=== PATIENT | female | born 1940 | race Caucasian/White ===

== ENCOUNTER 2019-03-17 16:12 | Emergency (ER) | payer OTHER ==
[~2019-03-17] VITALS: Ht 165.1 cm; Wt 68.0 kg
[2019-03-17] MEDS ORDERED: SODIUM CHLORIDE 0.9% 500 ML IVB ONE (16:22)
[2019-03-17] MEDS ORDERED: ACETAMINOPHEN 325 MG TAB PO ONE (17:00)
[2019-03-17 17:23] LABS: Urine WBC None Seen /hpf (0 - 5)
[2019-03-17 17:51] LABS: Albumin 2.4 g/dL (3.4-5.0); Anion Gap 9 (5-15); Basophils # (auto) 0.1 uL; Basophils % (auto) 0.9 % (0.0-2.0); Blood Urea Nitrogen 26 mg/dL (7-18); Calcium 8.7 mg/dL (8.5-10.1); Carbon Dioxide 22 mmol/L (21-32); Chloride 105 mmol/L (98-107); Eosinophils # (auto) 0.4 uL; Eosinophils % (auto) 2.8 % (0.0-7.0); Glucose 140 mg/dL (74-106); Hematocrit 33.5 % (36.0-46.0); Hemoglobin 10.9 g/dL (12.2-16.2); Lymphocytes # (auto) 1.4 uL; Lymphocytes % (auto) 10.9 % (10.0-50.0); Magnesium 1.7 mg/dL (1.6-2.6); Mean Corpuscular Hemoglobin 27.9 pg (28.0-32.0); Mean Corpuscular Hgb Conc. 32.5 g/dL (32.0-36.0); Mean Corpuscular Volume 85.9 fL (80.0-100.0); Monocytes # (auto) 1.4 uL; Monocytes % (auto) 11.3 % (0.0-12.0); Neutrophils # (auto) 9.3 uL; Neutrophils % (auto) 74.1 % (37.0-80.0); Platelet Count (auto) 273 10^3/uL (140-450); Potassium 4.2 mmol/L (3.5-5.1); Red Cell Distribution Width 15.1 % (11.8-14.3); Sodium 136 mmol/L (136-145); White Blood Cell 12.6 10^3/uL (4.4-10.8)
[2019-03-17 17:54] LABS: Alanine Aminotransferase 44 U/L (13-56); Alkaline Phosphatase 113 U/L (45-117); Aspartate Aminotransferase 41 U/L (15-37); BUN/Creatinine Ratio 27.1; Bilirubin, Total 0.4 mg/dL (0.2-1.0); GFR African American 72 mL/min; GFR Non-African American 60 mL/min; Total Protein 7.4 g/dL (6.4-8.2)
[2019-03-17 17:56] LABS: Lactic Acid w/Reflex 2.4 mmol/L (0.4-2.0)
[2019-03-17 18:23] LABS: INR > 8.0 (0.9-1.15)
[2019-03-17 18:30] LABS: Urine Bacteria NONE SEEN /hpf (None Seen); Urine Blood Negative /uL (Negative); Urine Specific Gravity 1.013 (1.001-1.035)
[2019-03-17] MEDS ORDERED: PHYTONADIONE (VIT K)10 MG/ML 1ML VIAL SUBCUT ONE (19:00)
[2019-03-17 19:54] LABS: Alcohol, Urine < 3.0 mg/dL (0-5); Amphetamine Screen, Urine NEGATIVE (NEGATIVE); Barbiturate Scree,Urine NEGATIVE (NEGATIVE); Benzodiazephine Screen, Urine NEGATIVE (NEGATIVE); Cannabinoid Screen, Urine NEGATIVE (NEGATIVE); Cocaine Screen, Urine NEGATIVE (NEGATIVE); Opiate Scree,Urine NEGATIVE (NEGATIVE); Phencyclidine Screen, Urine NEGATIVE (NEGATIVE)
[2019-03-18 02:03] VITALS: BP 123/84
== END 2019-03-18 02:24 | disposition short-term general hospital (02) ==
LOC: EDBD 16:12 → ER 16:12
DX: I50.33 Acute on chronic diastolic (congestive) heart failure (principal); J44.9 Chronic obstructive pulmonary disease, unspecified; E11.9 Type 2 diabetes mellitus without complications; R51 Headache; Z88.2 Allergy status to sulfonamides
CPT/HCPCS: 36415; 51702; 70450; 71045; 80053; 80307; 81001; 83605; 83735; 83880; 84484; 85025; 85610; 85730; 87040; 93005; 94761; 96372; 99285; J3430; J7040

== ENCOUNTER 2024-12-26 09:45 | Inpatient (IN) | payer OTHER ==
[~2024-12-26] VITALS: Ht 165.1 cm; Wt 71.0 kg
[~2024-12-26 09:45] MED LIST: ALLO100T PO; ATOR40TA52 PO; LOS25T PO; SERT25TA28 PO
--- NOTE | 2024-12-26 09:54 | ED.PDOC ---
History of Present Illness HPI Comments 84-year-old female brought by paramedics because of generalized weakness which started yesterday as per family. Patient also has not been able to have a bowel movement since this morning. Patient on not answering questions appropriately. Possible dementia. History of diabetes pacemaker hyper cholesterol. Blood pressure on arrival was 146/83 with a heart rate of 89 saturation 98% on room air. 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 Hx Family History Family History: Unknown Social History Smoker: Non-Smoker Alcohol: Denies ETOH Use Drugs: Denies Drug Use Lives In: Home Constitutional: reports: weakness; denies: chills, diaphoresis, fatigue, fever, malaise, sweats, others EENTM: denies: blurred vision, double vision, ear bleeding, ear discharge, ear drainage, ear pain, ear ringing, eye pain, eye redness, hearing loss, mouth pain, mouth swelling, nasal discharge, nose bleeding, nose congestion, nose pain, photophobia, tearing, throat pain, throat swelling, voice changes, others Respiratory: denies: cough, hemoptysis, orthopnea, SOB at rest, shortness of breath, SOB with excertion, stridor, wheezing, others Cardiovascular: denies: chest pain, dizzy spells, diaphoresis, Dyspnea on exertion, edema, irregular heart beat, left arm pain, lightheadedness, palpitations, PND, syncope, others Gastrointestinal: reports: abdominal pain; denies: abdomen distended, blood streaked bowels, constipated, diarrhea, dysphagia, difficulty swallowing, hematemesis, melena, nausea, poor appetite, poor fluid intake, rectal bleeding, rectal pain, vomiting, others Genitourinary: denies: abnormal vagina bleeding, burning, dyspareunia, dysuria, flank pain, frequency, hematuria, incontinence, pain, , vagina discharge, urgency, others Neurological: denies: dizziness, fainting, headache, left sided numbness, left sided weakness, numbness, paresthesia, pre-existing deficit, right sided numbness, right sided weakness, seizure, speech problems, tingling, tremors, weakness, others Musculoskeletal: denies: back pain, gout, joint pain, joint swelling, muscle pain, muscle stiffness, neck pain, others Integumetry: denies: bruises, change in color, change in hair/nails, dryness, laceration, lesions, lumps, rash, wounds, others Allergic/Immunocompromised: denies: Difficulty Healing, Frequent Infections, Hives, Itching, others Hematologic/Lymphatic: denies: anemia, blood clots, easy bleeding, easy bruising, swollen glands, others Endocrine: denies: excessive hunger, excessive sweating, excessive thirst, excessive urination, flushing, intolerance to cold, intolerance to heat, unexplained weight gain, unexplained weight loss, others Psychiatric: denies: anxiety, bipolar disorder, depression, hopeless, panic disorder, schizophrenia, sleepless, suicidal, others Unable to Obtain due to: Altered Mental Status Physical Exam General Appearance: Moderate Distress HEENT: Normal ENT Inspection, Pharynx Normal, TMs Normal Neck: Full Range of Motion, Non-Tender, Normal, Normal Inspection Respiratory: Chest Non-Tender, Lungs Clear, No Accessory Muscle Use, No Respiratory Distress, Normal Breath Sounds Cardiovascular: No Edema, No JVD, No Murmur, No Gallop, Normal Peripheral Pulses, Regular Rate/Rhythm Breast Exam: Deferred Gastrointestinal: No Organomegaly, Non Tender, No Pulsatile Mass, Normal Bowel Sounds, Soft Genitalia: Deferred Pelvic: Deferred Rectal: Deferred Extremities: No calf tenderness, No pedal edema Musculoskeletal : Apperance: Normal Neurologic: Disoriented, No Motor Deficits, No Sensory Deficits Cerebellar Function: NOT DONE Reflexes: NOT DONE Skin: Pallor Peripheral Pulses: 3+ Radial (R), 3+ Radial (L) Lymphatic: No Adenopathy Was a procedure done? Was a procedure done?: No Differential Dx Considerations may include: TIA Electrolyte imbalance X-Ray, Labs, Meds, VS Vital Signs Date Time Temp Pulse Resp B/P (MAP) Pulse Ox O2 Delivery O2 Flow Rate FiO2 12/26/24 13:26 97.8 70 18 114/55 (74) 99 97.8 12/26/24 10:30 Room Air* 0 21 12/26/24 10:00 97.5 89 16 146/83 (104) 98 97.5 12/26/24 09:58 70 Lab Test 12/26/24 15:27 12/26/24 13:22 12/26/24 10:12 Range/Units Lactic Acid Level 3.3 *H 3.1 *H 0.4-2.0 mmol/L White Blood Count 22.9 H 4.4-10.8 10^3/uL Red Blood Count 4.69 4.0-5.20 10^6/uL Hemoglobin 13.1 12.2-16.2 g/dL Hematocrit 41.2 36.0-46.0 % Mean Corpuscular Volume 87.8 80.0-100.0 fL Mean Corpuscular Hemoglobin 27.9 L 28.0-32.0 pg Mean Corpuscular Hemoglobin Concent 31.8 L 32.0-36.0 g/dL Red Cell Distribution Width 16.7 H 11.8-14.3 % Platelet Count 271 140-450 10^3/uL Mean Platelet Volume 11.0 H 6.9-10.8 fL Neutrophils (%) (Auto) 82.3 H 37.0-80.0 % Lymphocytes (%) (Auto) 9.9 L 10.0-50.0 % Monocytes (%) (Auto) 4.7 0.0-12.0 % Eosinophils (%) (Auto) 2.1 0.0-7.0 % Basophils (%) (Auto) 1.0 0.0-2.0 % Neutrophils # (Auto) 18.9 H 1.6-8.6 10 ^3/uL Lymphocytes # (Auto) 2.3 0.4-5.4 10 ^3/uL Monocytes # (Auto) 1.1 0-1.3 10 ^3/uL Eosinophils # (Auto) 0.5 0-0.8 10 ^3/uL Basophils # (Auto) 0.2 0-0.2 10 ^3/uL Nucleated Red Blood Cells 0.0 % Sodium Level 137 136-145 mmol/L Potassium Level 4.6 3.5-5.1 mmol/L Chloride Level 107 98-107 mmol/L Carbon Dioxide Level 21 20-31 mmol/L Anion Gap 9 5-15 Blood Urea Nitrogen 19 9-23 mg/dL Creatinine 0.88 0.550-1.02 mg/dL Glomerular Filtration Rate Calc 65 >90 mL/min BUN/Creatinine Ratio 21.6 H 10.0-20.0 Serum Glucose 266 H 74-106 mg/dL Calcium Level 10.7 H 8.7-10.4 mg/dL Troponin I High Sensitivity 5 </=34 ng/L Current Medications Medications (Trade) Dose Ordered Sig/Satish Route Start Time Stop Time Status Last Admin Ceftriaxone Sodium 50 ml @ 100 mls/hr ONCE ONCE IV 12/26/24 13:00 12/26/24 13:29 DC 12/26/24 14:00 Ceftriaxone Sodium 50 ml @ 100 mls/hr ONCE ONCE IV 12/26/24 13:00 12/26/24 13:29 DC 12/26/24 14:00 Metronidazole 100 ml @ 100 mls/hr ONCE ONCE IV 12/26/24 13:00 12/26/24 13:59 DC 12/26/24 14:00 Sodium Chloride 1,700 ml @ 1,700 mls/hr ONCE ONCE IV 12/26/24 14:15 12/26/24 15:18 DC 12/26/24 14:15 Sodium Chloride 1,000 ml @ 1,000 mls/hr Q1H ONCE IV 12/26/24 14:15 12/26/24 15:18 DC 12/26/24 14:15 Patient disoriented. Unable to get a good history from the patient. Possible sepsis from urine. Blood sugar elevated. Establish intravenous access. Was given fluids. WBC elevated. Sepsis workup. Urine culture. Devlin catheter. Was given insulin. EKG reviewed does not show any acute changes. Cardiac marker within normal limits. Unstable for transfer. Continue to monitor. Frederic approved inpatient admission [id number]. Time of 1ST Reevaluation: 09:54 Reevaluation 1ST: Unchanged Patient Education/Counseling: Other (Not responding well) Family Education/Counseling: No Family Present Sepsis Sepsis Reasesment Focused Exam Orders: Laboratory Tests 12/26/24 13:22: Lactic Acid Level 3.1 12/26/24 15:27: Lactic Acid Level 3.3 Departure 1 Departure Time of Disposition: 12:49 Impression: Primary Impression: Sepsis due to urinary tract infection Additional Impressions: Metabolic encephalopathy Acute diverticulitis Disposition: ADMITTED INPATIENT Admit to: Med Surg Condition: Guarded Critical Care Note Critical Care Time?: No Stability Stability form required: No Heart Score Heart Score: Heart Score Response (Comments) Value History Slightly Suspicious 0 EKG Normal 0 Age >65 2 Risk Factors >3 or Hx ASHD 2 Troponin Normal limit 0 Total 4 VAHID BURROWS MD December 26, 2024 09:54
--- NOTE | 2024-12-26 10:03 | ECG ---
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
[2024-12-26 10:38] LABS: Basophils # (auto) 0.2 10 ^3/uL (0-0.2); Eosinophils # (auto) 0.5 10 ^3/uL (0-0.8); Eosinophils % (auto) 2.1 % (0.0-7.0); Hematocrit 41.2 % (36.0-46.0); Hemoglobin 13.1 g/dL (12.2-16.2); Lymphocytes # (auto) 2.3 10 ^3/uL (0.4-5.4); Lymphocytes % (auto) 9.9 % (10.0-50.0); Mean Corpuscular Hemoglobin 27.9 pg (28.0-32.0); Mean Corpuscular Hgb Conc. 31.8 g/dL (32.0-36.0); Mean Corpuscular Volume 87.8 fL (80.0-100.0); Monocytes # (auto) 1.1 10 ^3/uL (0-1.3); Monocytes % (auto) 4.7 % (0.0-12.0); Neutrophils # (auto) 18.9 10 ^3/uL (1.6-8.6); Neutrophils % (auto) 82.3 % (37.0-80.0); Platelet Count (auto) 271 10^3/uL (140-450); Red Blood Cells 4.69 10^6/uL (4.0-5.20); Red Cell Distribution Width 16.7 % (11.8-14.3); White Blood Cell 22.9 10^3/uL (4.4-10.8)
[2024-12-26 10:43] LABS: Chloride 107 mmol/L (98-107); Potassium 4.6 mmol/L (3.5-5.1); Sodium 137 mmol/L (136-145)
--- NOTE | 2024-12-26 10:43 | DVH ---
EXAM: XY CHEST PORTABLE Indication: sob Technique: Single frontal view of the chest was obtained Comparison: None FINDINGS: Lines and Tubes: Cardiac pacemaker projects over left chest wall. Lungs: No focal consolidation. Pleura: No effusion. No pneumothorax. Cardiomediastinal contours: Unremarkable. Atherosclerotic vascular calcifications of the thoracic ao rta are noted. Bones: No acute osseous abnormality. IMPRESSION: No acute cardiopulmonary disease.
[2024-12-26 10:44] LABS: Anion Gap 9 (5-15); Carbon Dioxide 21 mmol/L (20-31)
[2024-12-26 10:49] LABS: BUN/Creatinine Ratio 21.6 (10.0-20.0); Blood Urea Nitrogen 19 mg/dL (9-23)
[2024-12-26 10:50] LABS: Calcium 10.7 mg/dL (8.7-10.4); Glucose 266 mg/dL (74-106)
--- NOTE | 2024-12-26 13:27 | DVH ---
EXAM: CT HEAD WITHOUT CONTRAST INDICATION: altered EXAM DATE: 12/26/2024 12:56 PM COMPARISON: None TECHNIQUE: CT of the head without intravenous contrast. Radiation Dose Information: [place] [address] mGy. Dose-length product is 1756.89 mGy*cm FINDINGS: There is no evidence of acute intracranial hemorrhage, extra-axial collection, mass effect, midline s hift, herniation or hydrocephalus. There is global atrophy with periventricular ischemic white matter changes. The ventricles, sulci and cisterns are age appropriate. The borrego-white differentiation is i ntact. The visualized paranasal sinuses and mastoid air cells are clear. Small retention cysts in the right maxillary air cell. The surrounding soft tissues and osseous structures are unremarkable. Ther e are bilateral hyperostosis frontalis interna. IMPRESSION: 1. No evidence of acute intracranial hemorrhage, mass effect or hydrocephalus.
--- NOTE | 2024-12-26 13:35 | DVH ---
Exam: CT CT AB PEL WO CON-NO ORAL OR IV History: colitis Comparison Study: None Technique: Multidetector spiral CT of the abdomen was performed from lung bases to pubic symphysis. I maging was performed without IV contrast. Axial, coronal and sagittal multiplanar reformats were obta ined from the axial data set by the technologist. Radiation Dose : 1. Abdomen/Pelvis: CTDIvol 12 mGy, DLP 629 mGy*cm. Findings: Evaluation of solid organs is limited due to lack of intravenous contrast use. Lung Bases: 1.6 cm mass in the left lower lobe. Cardiomegaly. Liver: The liver is normal in size. No focal lesions. Gallbladder and Biliary Tree: Unremarkable Spleen: Unremarkable Pancreas: The pancreas is grossly normal in appearance. Adrenal Glands: Unremarkable Kidneys: Kidneys are grossly normal without calculi or hydronephrosis. Bladder: Grossly unremarkable for degree of distention. Bowel: The stomach is grossly normal in appearance. Moderate colonic stool. Diverticulosis. Moderate inflammatory changes associated with the distal sigmoid colon. The appendix is not visualized; howeve r, no secondary findings of acute appendicitis identified. Ascites: Absent Lymphadenopathy: No mesenteric, retroperitoneal or periportal lymphadenopathy. Abdominal Wall and Mesentery: Unremarkable. Vasculature: The visualized abdominal aorta is normal in size and caliber. Evaluation of abdominal a nd pelvic vessels is limited due to lack of intravenous contrast. Pelvic Organs: Unremarkable Musculoskeletal: No aggressive focal bony lesions, acute fractures or dislocation. Multilevel degener ative changes of the spine. IMPRESSION: Findings are suspicious for acute diverticulitis involving the distal sigmoid colon. No abscess or pe rforation at this time.
[2024-12-26] MEDS: metroNIDAZOLE 500MG/100ML 100 ML IV ONE (14:00)
[2024-12-26] MEDS: cefTRIAXone 1GM/50ML D5W 50 ML IV ONE ×2 (14:00)
[2024-12-26 14:05] LABS: Lactic Acid w/Reflex 3.1 mmol/L (0.4-2.0)
[2024-12-26] MEDS: SODIUM CHLORIDE 0.9% 1,700 ML IV ONE (14:15)
[2024-12-26] MEDS: SODIUM CHLORIDE 0.9% 1,000 ML IV ONE (14:15)
[2024-12-26] MEDS: SODIUM CHLORIDE 0.9% 1,000 ML IV SCH (16:30)
[2024-12-26] MEDS ORDERED: NITROGLYCERIN 0.4 MG SL TAB SL PRN (16:30)
[2024-12-26] MEDS ORDERED: MORPHINE SULFATE INJ 2 MG/ml SYRG IV PRN ×2 (16:30)
--- NOTE | 2024-12-26 17:21 | DVHHPRES ---
History of Present Illness Resident Creating Document: YAEL MCCULLOUGH RESIDENT Reason for Visit: sepsis likely due to diverticulitis History of Present Illness 84 year old female patient with past medical history of heart failure( pending echo), COPD, type 2 diabetes, pacemaker who presented to the ER with the chief complaint of generalized weakness and abdominal pain described as moderate ( patient poor historian). Patient was examied at bedside and reports feeling better with no acute complaints, laboratory findings confirmed severe sepsis which source was likely due to an acute diverticulitis as its showed in CT abdomen. Patient was started on metronidazole and ceftriaxone , blood cultures were ordered. echocardiogram pending. Past surgical history: Appendectomy, Cholecystectomy, Hysterectomy, Pacemaker, Tonsillectomy Allergies: sulfa antibiotics Past social history: denies Patient poor historian, interview was limited. Smoke: No ALCOHOL: none Drugs: None Review of Systems Constitutional: Yes: Weakness, Malaise Eyes: No: Pain, Vision change, Conjunctivae inflammation, Eyelid inflammation, Other, Redness ENT: No: Ear pain, Ear discharge, Nose pain, Nose discharge, Nose congestion, Mouth pain, Mouth swelling, Throat pain, Throat swelling, Other Respiratory: No: Cough, Dry, Shortness of breath, SOB with excertion, Wheezing, Hemoptysis, Pleuritic Pain, Sputum, Wheezing, Other Cardiovascular: No: Chest Pain, Palpitations, Orthopnea, Paroxysmal Noc. Dyspnea, Edema, Lt Headedness, Other Gastrointestinal: No: Nausea, Vomiting, Abdominal Pain, Diarrhea, Constipation, Melena, Hematochezia, Other Genitourinary: No Dysuria, No Frequency, No Incontinence, No Hematuria, No Retention, No Other Musculoskeletal: No: other, neck pain, shoulder pain, arm pain, back pain, hand pain, leg pain, foot pain Skin: No: Rash, Lesions, Jaundice, Bruising, Other Neurological: Weakness Allergies: Coded Allergies: Sulfa Antibiotics (Verified Allergy, Unknown, 03/17/19) Medications Current Medications Medications Dose Ordered Sig/Satish Route Start Time Stop Time Status Last Admin Dose Admin Sodium Chloride 1,000 ml @ 120 mls/hr Q8H20M IV 12/26/24 16:30 UNV Morphine Sulfate 2 mg Q4HPRN PRN IV 12/26/24 16:30 UNV Nitroglycerin 0.4 mg Q5MINP PRN SL 12/26/24 16:30 UNV Morphine Sulfate 2 mg Q30M PRN IV 12/26/24 16:30 UNV Exam Vital Signs Vital Signs Date Time Temp Pulse Resp B/P (MAP) Pulse Ox O2 Delivery O2 Flow Rate FiO2 12/26/24 13:26 97.8 70 18 114/55 (74) 99 97.8 12/26/24 10:30 Room Air* 0 21 General Appearance: Alert, Oriented X3, Cooperative, mild distress HEENT: PERRLA, EOMI Respiratory: Clear to auscultation, Normal air movement Cardiovascular: Regular rate, Normal S1, Normal S2 Abdominal: Normal bowel sounds, Soft, No tenderness Extremities: No clubbing, No cyanosis, No edema Skin: No rashes, No significant lesion Neuro: Normal speech, Normal tone, Sensation intact, Cranial nerves 3-12 NL Labs/Xrays Labs Test 12/26/24 15:27 12/26/24 10:12 Range/Units Lactic Acid Level 3.3 *H 0.4-2.0 mmol/L White Blood Count 22.9 H 4.4-10.8 10^3/uL Red Blood Count 4.69 4.0-5.20 10^6/uL Hemoglobin 13.1 12.2-16.2 g/dL Hematocrit 41.2 36.0-46.0 % Mean Corpuscular Volume 87.8 80.0-100.0 fL Mean Corpuscular Hemoglobin 27.9 L 28.0-32.0 pg Mean Corpuscular Hemoglobin Concent 31.8 L 32.0-36.0 g/dL Red Cell Distribution Width 16.7 H 11.8-14.3 % Platelet Count 271 140-450 10^3/uL Mean Platelet Volume 11.0 H 6.9-10.8 fL Neutrophils (%) (Auto) 82.3 H 37.0-80.0 % Lymphocytes (%) (Auto) 9.9 L 10.0-50.0 % Monocytes (%) (Auto) 4.7 0.0-12.0 % Eosinophils (%) (Auto) 2.1 0.0-7.0 % Basophils (%) (Auto) 1.0 0.0-2.0 % Neutrophils # (Auto) 18.9 H 1.6-8.6 10 ^3/uL Lymphocytes # (Auto) 2.3 0.4-5.4 10 ^3/uL Monocytes # (Auto) 1.1 0-1.3 10 ^3/uL Eosinophils # (Auto) 0.5 0-0.8 10 ^3/uL Basophils # (Auto) 0.2 0-0.2 10 ^3/uL Nucleated Red Blood Cells 0.0 % Sodium Level 137 136-145 mmol/L Potassium Level 4.6 3.5-5.1 mmol/L Chloride Level 107 98-107 mmol/L Carbon Dioxide Level 21 20-31 mmol/L Anion Gap 9 5-15 Blood Urea Nitrogen 19 9-23 mg/dL Creatinine 0.88 0.550-1.02 mg/dL Glomerular Filtration Rate Calc 65 >90 mL/min BUN/Creatinine Ratio 21.6 H 10.0-20.0 Serum Glucose 266 H 74-106 mg/dL Calcium Level 10.7 H 8.7-10.4 mg/dL Troponin I High Sensitivity 5 </=34 ng/L Assessment/Plan Assessment/Plan Assessment: Severe sepsis likely due to acute diverticulitis Hyperglycemia due to uncontrolled type 2 diabetes Systolic/diastolic heart failure Hypercalcemia Left lower lung mass (1.6 cm) Plan: admit to telemetry Broad spectrum antibiotics, IV metronidazole and ceftriaxone IV fluids echocardiogram blood culture urine culture vitamin D PTH insulin sliding scale protocol Ralston approved inpatient admission [id number]. case discussed with code status: full code Plan discussed with: Patient My Orders Orders - YAEL MCCULLOUGH RESIDENT Procedure Category Date Status Time Admit ADMIT 12/26/24 Transmitted 16:22 Allergies JUICE 12/26/24 In Process 16:22 Code Status CODE 12/26/24 Transmitted 16:22 Sodium Chloride 0.9% PHA 12/26/24 Logged 16:30 Complete Blood Count LAB 12/27/24 Verified 04:00 Comprehensive LAB 12/27/24 Verified Metabolic Panel 04:00 Npo (Nothing By DIET 12/26/24 Transmitted Mouth) Diet Dinner Echo 2d Mode Cardiac US 12/26/24 Logged DOP 16:22 Condition: Unstable JUICE 12/26/24 In Process 16:22 Morphine Sulfate PHA 12/26/24 Logged Injection 16:30 Nitroglycerin PHA 12/26/24 Logged Sublingual (Ntrostat 16:30 Morphine Sulfate PHA 5/27/25 Logged Injection 16:30 Oxygen By Nasal RT 12/26/24 Transmitted Cannula 16:22 Stat Ekg For Chest [facility] 12/26/24 In Process Pain 16:22 Notify Md Of Changes [facility] 12/26/24 In Process From Base 16:22 Pantry Goods Worker For [facility] 12/26/24 In Process 24 Hours 16:22 Emergency Dysrhythmia [facility] 12/26/24 In Process Protocol 16:22 Rhythm Strips Once [facility] 12/26/24 In Process Every Shift 16:22 Date of Service: December 26, 2024 Billing Provider: RIC WHARTON MD Common Visit Codes: [id number] INP/OBS CARE (HIGH) Secondary Visit Codes: [id number] CARE PLAN 30 MINUTES YALE MCCULLOUGH RESIDENT December 26, 2024 17:21 RIC WHARTON MD December 27, 2024 07:20
[2024-12-26] MEDS ORDERED: MORPHINE SULFATE 4 MG/ML SYR/VIAL IV PRN (17:45)
[2024-12-26 18:47] LABS: INR 1.03 (0.9-1.15); Prothrombin Time 10.9 sec (9.3-11.8)
[2024-12-26 20:51] LABS: COVID19 ANTIGEN SOFIA FIA NEGATIVE (NEGATIVE); Rapid Influenza A Negative (Negative); Rapid Influenza B Negative (Negative)
[2024-12-26] MEDS: metroNIDAZOLE 500MG/100ML 100 ML IV SCH (23:15)
[2024-12-26 23:46] VITALS: PULSE 78; O2SAT 96
[2024-12-27] VITALS (9 sets, daily range): BP systolic 130–164; BP diastolic 59–95; PULSE 69–81; RESP 17–20; TEMP 97.4–98.2; O2SAT 91–97
[2024-12-27 06:44] LABS: Hematocrit 43.7 % (36.0-46.0); Hemoglobin 13.6 g/dL (12.2-16.2); Mean Corpuscular Hemoglobin 27.9 pg (28.0-32.0); Mean Corpuscular Hgb Conc. 31.1 g/dL (32.0-36.0); Mean Corpuscular Volume 89.8 fL (80.0-100.0); Platelet Count (auto) 166 10^3/uL (140-450); Red Blood Cells 4.86 10^6/uL (4.0-5.20); Red Cell Distribution Width 17.4 % (11.8-14.3); White Blood Cell 29.4 10^3/uL (4.4-10.8)
[2024-12-27 07:04] LABS: Alanine Aminotransferase 18 U/L (7-40); Albumin 4.1 g/dL (3.2-4.8); Alkaline Phosphatase 86 U/L (46-116); Anion Gap 13 (5-15); Aspartate Aminotransferase 20 U/L (13-40); BUN/Creatinine Ratio 21.4 (10.0-20.0); Bilirubin, Total 0.6 mg/dL (0.2-1.0); Blood Urea Nitrogen 15 mg/dL (9-23); Calcium 9.8 mg/dL (8.7-10.4); Potassium 4.4 mmol/L (3.5-5.1); Sodium 142 mmol/L (136-145); Total Protein 7.5 g/dL (5.7-8.2)
[2024-12-27 07:09] LABS: Carbon Dioxide 18 mmol/L (20-31); Chloride 111 mmol/L (98-107); Glucose 172 mg/dL (74-106)
[2024-12-27 07:24] LABS: Band Neutrophils % (manual) 0; Basophils % (manual) 0 (0.0-2.0); Blast Cells 0; Eosinophils % (manual) 0 (0-7); Metamyelocytes % 0; Myelocytes % 0; Promyelocytes % 0; Reactive Lymphocytes 0
[2024-12-27 08:23] LABS: Lymphocytes % (manual) 5 (10.0-50.0); Monocytes % (manual) 5 (0-12); Platelet Estimate Adequate
[2024-12-27] MEDS: cefTRIAXone 1GM/50ML D5W 50 ML IV SCH (08:59)
[2024-12-27] MEDS ORDERED: DEXTROSE (50%) 50ML SYRG IV PRN (10:15)
--- NOTE | 2024-12-27 10:23 | DVHPN2 ---
Progress Note Date Seen: December 27, 2024 Medical Necessity Reason Pt with a Central, PICC or Fol: No Subjective Patient reports: No new complaints Review of Systems: HEENT:Normal, CVS:Normal, RESPIRATORY:Normal, GI:Normal, :Normal, MSK:Normal, NEURO:Normal Objective vital signs Vital Sign Date Time Temp Pulse Resp B/P (MAP) Pulse Ox O2 Delivery O2 Flow Rate FiO2 12/27/24 09:00 97.4 74 17 130/80 (97) 93 97.4 12/27/24 01:32 Room Air* 0 21 Total Intake and Output 12/26/24 12/26/24 12/27/24 15:00 23:00 07:00 Intake Total 0 ml Balance 0 ml medications Current Medications Medications Dose Ordered Sig/Satsih Route Start Time Stop Time Status Last Admin Dose Admin Sodium Chloride 1,000 ml @ 120 mls/hr Q8H20M IV 12/26/24 16:30 12/26/24 23:15 120 MLS/HR Nitroglycerin 0.4 mg Q5MINP PRN SL 12/26/24 16:30 Morphine Sulfate 2 mg Q30M PRN IV 12/26/24 16:30 Morphine Sulfate 2 mg Q4HPRN PRN IV 12/26/24 17:45 Metronidazole 100 ml @ 100 mls/hr Q8HR IV 12/26/24 22:00 12/27/24 05:08 100 MLS/HR Ceftriaxone Sodium 50 ml @ 100 mls/hr DAILY@09 IV 12/27/24 09:00 12/27/24 08:59 100 MLS/HR Examination: GENERAL:Normal, HEENT:Normal, NECK:Normal, LUNGS:Normal, CVS:Normal, ABDOMEN:Normal, ABDOMEN:Abnormal (distension), MSK:Normal, SKIN:Normal, NEURO:Normal, :Normal laboratory and microbiology Laboratory Tests 12/27/24 05:28 Test 12/27/24 05:28 Range/Units Serum Glucose 172 H 74-106 mg/dL Problem List/Assessment/Plan Problem List/Assessment/Plan #1 acute diverticulitis with sepsis: ivf, iv zosyn, gi eval #2 dm: ssi #3 obesity #4 pacer #5 chronic systolic/diastolic heart failure: echo advance care planning- full code- time spent 19 mins unstable for transfer Plan discussed with: Patient Date of Service: December 27, 2024 Billing Provider: MICHAEL ISABEL MD Common Visit Codes: [id number] INP/OBS CARE(HIGH) Secondary Visit Codes: [id number] CARE PLAN 30 MINUTES MICHAEL ISABEL MD December 27, 2024 10:23
[2024-12-27] MEDS: InsuLIN REG 1unit/0.01ml Soln (100units/ml) SC SCH (12:00)
[2024-12-27] MEDS: PIPERACILLIN-TAZOB 3.375GM 100 ML IV ONE (12:10)
[2024-12-27] MEDS: SODIUM CHLORIDE 0.9% 1,000 ML IV SCH (12:10)
[2024-12-27] MEDS: ACCU-CHEK COMFORT CURVE STRIP VI SCH (12:13)
--- NOTE | 2024-12-27 13:42 | DVHINCON2 ---
GI Consult Consult Note GI consult note Date of Consultation: 12/27/2024 Chief Complaint: Acute diverticulitis Referring Physician: Dr. Drake H&P: 84-year-old female with past medical history of heart failure, COPD, diabetes and pacemaker presented to ER with chief complaint of generalized weakness and abdominal pain. Patient complains of lower abdominal pain in the last 3-4 days. No nausea or vomiting. Last BM this morning. No melena or red blood in stool. Denies fevers and chills. Unsure about last colonoscopy Past Medical History: As above Past Surgical History: Appendectomy, Cholecystectomy, Hysterectomy, Pacemaker, Tonsillectomy Social History: NO smoking, drinking ETOH and use of illegal drugs. Family History: Noncontributory Review of Systems: Constitutional: no fever, chill, weight loss HEENT: no eye pain, no hearing loss, no oral lesion, no scleral icterus Heart: no chest pain, no chest pressure Lung: no cough, no dyspnea with exertion Abdomen: see HPI Physical exam: General: NAD, AAOX3 Chest: lung deluca clear to auscultation Heart: RRR, no murmur Abdomen:+ tenderness to palpation, +BS Labs: Labs Test 12/27/24 12:07 12/27/24 05:28 12/26/24 18:22 12/26/24 18:00 Range/Units POC Glucose 191 H 70-106 mg/dl White Blood Count 29.4 H 4.4-10.8 10^3/uL Red Blood Count 4.86 4.0-5.20 10^6/uL Hemoglobin 13.6 12.2-16.2 g/dL Hematocrit 43.7 36.0-46.0 % Mean Corpuscular Volume 89.8 80.0-100.0 fL Mean Corpuscular Hemoglobin 27.9 L 28.0-32.0 pg Mean Corpuscular Hemoglobin Concent 31.1 L 32.0-36.0 g/dL Red Cell Distribution Width 17.4 H 11.8-14.3 % Platelet Count 166 140-450 10^3/uL Mean Platelet Volume 11.5 H 6.9-10.8 fL Neutrophils (%) (Auto) 37.0-80.0 % Lymphocytes (%) (Auto) 10.0-50.0 % Monocytes (%) (Auto) 0.0-12.0 % Basophils (%) (Auto) 0.0-2.0 % Neutrophils # (Auto) 1.6-8.6 10 ^3/uL Lymphocytes # (Auto) 0.4-5.4 10 ^3/uL Monocytes # (Auto) 0-1.3 10 ^3/uL Differential Total Cells Counted 100.0 100 Neutrophils % (Manual) 90 H 37.0-80.0 Band Neutrophils % (Manual) 0 Lymphocytes % (Manual) 5 L 10.0-50.0 Monocytes % (Manual) 5 0-12 Eosinophils % (Manual) 0 0-7 Basophils % (Manual) 0 0.0-2.0 Metamyelocytes % (manual) 0 Myelocytes % (Manual) 0 Promyelocytes % (Manual) 0 Blast Cells % (Manual) 0 Reactive Lymphocytes 0 Platelet Estimate Adequate Sodium Level 142 # 136-145 mmol/L Potassium Level 4.4 3.5-5.1 mmol/L Chloride Level 111 H 98-107 mmol/L Carbon Dioxide Level 18 L 20-31 mmol/L Anion Gap 13 5-15 Blood Urea Nitrogen 15 9-23 mg/dL Creatinine 0.70 0.550-1.02 mg/dL Glomerular Filtration Rate Calc 86 >90 mL/min BUN/Creatinine Ratio 21.4 H 10.0-20.0 Serum Glucose 172 H 74-106 mg/dL Calcium Level 9.8 8.7-10.4 mg/dL Total Bilirubin 0.6 0.2-1.0 mg/dL Aspartate Amino Transferase (AST) 20 13-40 U/L Alanine Aminotransferase (ALT) 18 7-40 U/L Alkaline Phosphatase 86 46-116 U/L Total Protein 7.5 5.7-8.2 g/dL Albumin 4.1 3.2-4.8 g/dL Prothrombin Time 10.9 9.3-11.8 sec Prothrombin Time INR 1.03 0.9-1.15 Influenza Type A Antigen Negative Negative Influenza Type B Antigen Negative Negative SARS-CoV-2 Antigen (Rapid) Negative NEGATIVE Test 12/26/24 15:27 12/26/24 10:12 Range/Units Lactic Acid Level 3.3 *H 0.4-2.0 mmol/L Eosinophils (%) (Auto) 2.1 0.0-7.0 % Eosinophils # (Auto) 0.5 0-0.8 10 ^3/uL Basophils # (Auto) 0.2 0-0.2 10 ^3/uL Nucleated Red Blood Cells 0.0 % Hemoglobin A1c 7.0 H <5.7 % A1C Troponin I High Sensitivity 5 </=34 ng/L Vitamin D 25-Hydroxy 70.5 30.0-100 ng/mL Parathyroid Hormone (Intact) 24.6 18.4-80.1 pg/mL Microbiology Date/Time Source Procedure Growth Status 12/26/24 13:21 Blood Blood Culture - Preliminary NO GROWTH AFTER 24 HOURS OF INCUBATION. Resulted Imaging: CT abdomen pelvis IMPRESSION: Findings are suspicious for acute diverticulitis involving the distal sigmoid colon. No abscess or perforation at this time. Assessment: Acute diverticulitis Sepsis Plan: Discussed with Dr. Marie Continue antibiotic use Check labs in a.m. for CBC and CMP lactic acid and lipase NPO. Ice chips to be considered as pain improves Protonix We will continue to monitor the patient Thank you for this consult Date of Service: December 27, 2024 Billing Provider: DEMAR ZAMORANO Common Visit Codes: CONSULT ONLY Consultation Codes: [id number] CONSULT <60MIN DEMAR ZAMORANO December 27, 2024 13:42
[2024-12-27] MEDS: PIPERACILLIN-TAZOB 3.375GM 100 ML IV SCH (21:15)
[2024-12-27] MEDS ORDERED: ALBU2TAB11 PO (23:42)
[2024-12-27] MEDS ORDERED: ASPI325T6 PO (23:42)
[2024-12-27] MEDS ORDERED: KETO2CRE4 TOP (23:42)
[2024-12-27] MEDS ORDERED: ESTR1TAB6 PO (23:42)
[2024-12-27] MEDS ORDERED: TRIA0.1P2 TOP (23:42)
[2024-12-27] MEDS ORDERED: INSREG3 IV (23:42)
[2024-12-27] MEDS ORDERED: SERT-206 PO (23:42)
[2024-12-27] MEDS ORDERED: METF-370 PO (23:42)
[2024-12-27] MEDS ORDERED: INSUINJ2 SC (23:42)
[2024-12-28] VITALS (8 sets, daily range): BP systolic 157–193; BP diastolic 78–92; PULSE 67–80; RESP 17–19; TEMP 97.3–98.2; O2SAT 91–99
[2024-12-28] MEDS: hydrALAZINE HCL 20 MG/ML VL IV ONE (00:54)
--- NOTE | 2024-12-28 05:51 | DVH ---
EXAM: XR Chest, 1 View CLINICAL INDICATION: chf TECHNIQUE: Frontal view of the chest. COMPARISON: XY CHEST PORTABLE on DOS: 12/26/24 FINDINGS: LUNGS AND PLEURAL SPACES: Pulmonary congestion and edema. Pneumonia cannot be excluded. No pneumot horax. HEART: Unremarkable. No cardiomegaly. MEDIASTINUM: Unremarkable. Normal mediastinal contour. BONES/JOINTS: Unremarkable. No acute fracture. TUBES, LINES AND DEVICES: Left-sided cardiac pacemaker. OTHER FINDINGS: . . . IMPRESSION: Pulmonary congestion and edema. Pneumonia cannot be excluded.
[2024-12-28 08:05] LABS: Anion Gap 15 (5-15); Calcium 9.9 mg/dL (8.7-10.4); Carbon Dioxide 22 mmol/L (20-31); Chloride 106 mmol/L (98-107); Sodium 143 mmol/L (136-145)
[2024-12-28 08:07] LABS: Basophils # (auto) 0.1 10 ^3/uL (0-0.2); Basophils % (auto) 0.4 % (0.0-2.0); Eosinophils # (auto) 0 10 ^3/uL (0-0.8); Hematocrit 43.3 % (36.0-46.0); Hemoglobin 13.9 g/dL (12.2-16.2); Lymphocytes # (auto) 0.8 10 ^3/uL (0.4-5.4); Lymphocytes % (auto) 3.4 % (10.0-50.0); Mean Corpuscular Hgb Conc. 32.1 g/dL (32.0-36.0); Mean Corpuscular Volume 87.1 fL (80.0-100.0); Monocytes # (auto) 1.5 10 ^3/uL (0-1.3); Monocytes % (auto) 5.9 % (0.0-12.0); Neutrophils # (auto) 22.6 10 ^3/uL (1.6-8.6); Neutrophils % (auto) 90.3 % (37.0-80.0); Platelet Count (auto) 286 10^3/uL (140-450); Red Blood Cells 4.98 10^6/uL (4.0-5.20); Red Cell Distribution Width 17.4 % (11.8-14.3)
[2024-12-28 08:11] LABS: BUN/Creatinine Ratio 23.4 (10.0-20.0); Blood Urea Nitrogen 18 mg/dL (9-23); Potassium 2.8 mmol/L (3.5-5.1)
[2024-12-28 08:24] LABS: Glucose 199 mg/dL (74-106)
[2024-12-28 09:21] LABS: Lipase 31 U/L (12-53)
--- NOTE | 2024-12-28 09:38 | DVHPN2 ---
Progress Note Date Seen: December 28, 2024 Medical Necessity Reason Pt with a Central, PICC or Fol: No Subjective Patient reports: No new complaints Review of Systems: HEENT:Normal, CVS:Normal, RESPIRATORY:Normal, GI:Normal, :Normal, MSK:Normal, NEURO:Normal Objective vital signs Vital Sign Date Time Temp Pulse Resp B/P (MAP) Pulse Ox O2 Delivery O2 Flow Rate FiO2 12/28/24 05:00 97.3 75 17 158/81 (106) 96 97.3 12/27/24 20:00 Room Air* 0 21 Total Intake and Output 12/27/24 12/27/24 12/28/24 15:00 23:00 07:00 Intake Total 150 ml 600 ml 100 ml Balance 150 ml 600 ml 100 ml medications Current Medications Medications Dose Ordered Sig/Satish Route Start Time Stop Time Status Last Admin Dose Admin Nitroglycerin 0.4 mg Q5MINP PRN SL 12/26/24 16:30 Morphine Sulfate 2 mg Q30M PRN IV 12/26/24 16:30 Morphine Sulfate 2 mg Q4HPRN PRN IV 12/26/24 17:45 Sodium Chloride 1,000 ml @ 100 mls/hr Q10H IV 12/27/24 10:15 12/28/24 05:45 100 MLS/HR Piperacillin Sod/ Tazobactam Sod 100 ml @ 25 mls/hr Q8HR IV 12/27/24 21:00 12/28/24 05:45 25 MLS/HR Diagnostic Test (Pha) 1 strip Q6HR 12/27/24 12:00 12/28/24 06:00 1 STRIP Insulin Human Regular Q6HR SC 12/27/24 12:00 12/28/24 06:41 4 UNITS Dextrose 50 ml UD PRN IV 12/27/24 10:15 Examination: GENERAL:Normal, HEENT:Normal, NECK:Normal, LUNGS:Normal, CVS:Normal, ABDOMEN:Normal, ABDOMEN:Abnormal (distension), MSK:Normal, SKIN:Normal, NEURO:Normal, :Normal laboratory and microbiology Laboratory Tests 12/28/24 08:34 12/28/24 06:36 Test 12/28/24 06:36 Range/Units Serum Glucose 199 H 74-106 mg/dL Microbiology Date/Time Source Procedure Growth Status 5/27/25 13:21 Blood Blood Culture - Preliminary NO GROWTH AFTER 24 HOURS OF INCUBATION. Resulted Problem List/Assessment/Plan Problem List/Assessment/Plan #1 acute diverticulitis with sepsis: ivf, iv zosyn, gi eval, repeat ct abd with contrast #2 dm: ssi #3 obesity #4 s/p aicd #5 acute on chronic systolic/diastolic heart failure: lasix iv #6 htn #7 hypokalemia: replace advance care planning- full code- time spent 19 mins unstable for transfer Plan discussed with: Patient My Orders My Orders Orders - MICHAEL ISABEL MD Procedure Category Date Status Time Sodium Chloride 0.9% PHA 12/27/24 In Process 10:15 Urinalysis LAB 12/27/24 Uncollected 10:15 Piperacillin-Tazob PHA 12/27/24 In Process 3.375gm (Zosyn 3.375g 21:00 Glucose Blood PHA 12/27/24 In Process (Accu-Chek Comfort 12:00 Insulin R (Human) PHA 12/27/24 In Process (Insulin R) 12:00 Dextrose 50% Syringe PHA 12/27/24 In Process 10:15 * Gi [employer] CONS 12/27/24 Transmitted 10:15 Chest Portable XY 12/28/24 Resulted 06:00 0.9% Ns 1000 Ml PHA 12/28/24 Verified 09:45 Insert Devlin Catheter JUICE 12/28/24 Verified 09:33 Potassium Chl Sunny PHA 12/28/24 Verified KCL 09:45 Furosemide Injection PHA 12/28/24 Verified (Lasix Injection) 09:45 Hydralazine Injection PHA 12/28/24 Verified (Apresoline Inject 09:45 Ct Ab Pel With Iv Con CT 12/28/24 Verified Only 09:33 Date of Service: December 28, 2024 Billing Provider: MICHAEL ISABEL MD Common Visit Codes: [id number] INP/OBS CARE(HIGH) MICHAEL ISABEL MD December 28, 2024 09:38
[2024-12-28] MEDS ORDERED: MORPHINE SULFATE 4 MG/ML SYR/VIAL IV PRN (10:15)
[2024-12-28 10:39] LABS: Urine Bacteria None Seen /hpf (None Seen)
[2024-12-28 10:57] LABS: Urine Blood Negative /uL (Negative); Urine Clarity Clear (Clear); Urine Color Light-Yellow (Yellow); Urine Protein, UAD TRACE (Negative); Urine Specific Gravity 1.014 (1.001-1.035); Urine Squamous Epithelial Cell FEW /hpf (<5); Urine Urobilinogen Normal (Negative); Urine WBC 11 /HPF (0-5); Urine pH 5.5 (5.0-9.0)
[2024-12-28 11:02] LABS: Protein, Urine 43.7 mg/dL (1-14)
[2024-12-28 11:04] LABS: Urine Protein/Creatinine Ratio 1.99
[2024-12-28 11:07] LABS: Barbiturate Scree,Urine Neg (NEGATIVE); Opiate Scree,Urine Neg (NEGATIVE)
[2024-12-28 11:08] LABS: Amphetamine Screen, Urine Neg (NEGATIVE); Benzodiazephine Screen, Urine Neg (NEGATIVE); Cannabinoid Screen, Urine Neg (NEGATIVE); Cocaine Screen, Urine Neg (NEGATIVE); Phencyclidine Screen, Urine Neg (NEGATIVE)
--- NOTE | 2024-12-28 11:43 | DVHSR ---
APPROVED REPORT EXAM: Two-dimensional and M-mode echocardiogram with Doppler and color Doppler. Blood Pressure: 143/59 mmHg INDICATION CARDIAC DELINEATION RISK FACTORS Obesity: Height: 5'5, Weight: 229 DIMENSIONS LVDd4.6 (3.8-5.7cm)LA (2D)4.3 (1.9-4.0cm)Aortic Root2.7 (2.0-3.7cm) LVDs3.7 (2.5-4.0cm)LA (MM) (1.9-4.0cm)Aortic Cusp Exc0.8 (1.5-2.0cm) EF (%) 35.0 (55-70%)Rt. Atrium3.1 (1.9-4.0cm)Asc. Aorta2.9 cm IVSd0.9 (0.7-1.1cm)RV (D)3.6 (1.8-2.4cm) PWd0.8 (0.7-1.1cm) Mitral Valve MitralMitral Stenosis E wave1.22m/sMV Mean GR.mmHg A wave0.46m/sMV Peak GR.124mmHg E/A ratio2.72D MVAcm2 DECEL [id number] 1/2 Timems Aortic Valve Aortic ValveAortic Stenosis V10.75m/Vinny Mean GR.8mmHg V21.98m/Vinny Peak GR.15mmHg LVOT Diameter2.0 (1.8-2.4cm)Doppler AVA1.19cm2 Pulmonic Valve V21.30m/s Tricuspid Valve TR Velocity3.54m/s [id number] Other Information Technically limited study due to patient position.body habitus. Conclusion lvef 35-40 % by visual estimate normal RV function biatrial enlargement moderat mitral regurg no severe valve abnormalities noted limited study
--- NOTE | 2024-12-28 12:09 | DVH ---
CT CT AB PEL WITH IV CON ONLY INDICATION: ACUTE DIVERTICULITIS ABSCESS PERFORATION EXAM DATE: 12/28/2024 11:10 AM COMPARISON: None RADIATION DOSE: CTDIvol: 13.4 mGy, DLP: 633.84 mGy*cm PROCEDURE: Helical CT images were obtained of the abdomen and pelvis with IV contrast Sagittal and co karlie reconstructions are provided. ORAL CONTRAST: None. ADDITIONAL IMAGES / REFORMATS: None All CT s cans at this medical facility are performed using dose modulation techniques as appropriate to a perf ormed exam including the following: Automated exposure control was utilized; adjustment of the MA and /or KV according to patient size; and use of iterative reconstruction technique. FINDINGS: LUNG BASE: Stable left basilar pulmonary nodule. Bibasilar atelectasis, reticulation, trace effusion s. LIVER: Normal. GALLBLADDER AND BILIARY TREE: No calcified gallstones. Normal caliber wall. No intra- or extrahepatic biliary ductal dilation. PANCREAS: Normal. SPLEEN: Normal. BOWEL: Moderate colonic diverticulosis appears decreased in inflammation compared to prior exam locat ed at the sigmoid colon. ADRENALS: Normal. KIDNEYS AND URETER: Normal. BLADDER: Devlin within bladder that appears mildly inflammed. REPRODUCTIVE ORGANS: Normal. LYMPH NODES:No lymphadenopathy. PERITONEUM: No ascites or free air. No other fluid collection. VESSELS: Scattered atherosclerotic calcifications are noted. RETROPERITONEUM: Normal. ABDOMINAL WALL: Bilateral inguinal hernias are seen. BONES: Scattered osseous degenerative changes are noted. IMPRESSION: Moderate colonic diverticulosis appears decreased in inflammation compared to prior exam located at t he sigmoid colon. No focal fluid collection to suggest for abscess. Devlin within bladder that appears mildly inflammed could be cystitis.
[2024-12-28] MEDS: hydrALAZINE HCL 20 MG/ML VL IV PRN (13:05)
[2024-12-28] MEDS: FUROSEMIDE 20 MG/2 ML VIAL IV ONE (13:05)
[2024-12-28] MEDS: SODIUM CHLORIDE 0.9% 1,000 ML IV SCH (13:09)
[2024-12-28] MEDS: POTASSIUM CHLORIDE 40 MEQ, LIDOCAINE 1% (LOCAL ANESTH.) 4 ML in SODIUM CHL 0.9% 250 ML IV ONE (13:49)
--- NOTE | 2024-12-28 20:43 | DVHPN2 ---
Progress Note - Dictate Date Seen: December 28, 2024 Medical Necessity Reason Pt with a Central, PICC or Fol: No Subjective Patient seen at bedside resting comfortably She is still NPO; No nausea vomiting or bloating Abdominal pain is improved Patient had multiple bowel movements yesterday Persistent leukocytosis slightly improved Repeat CT scan shows slight improvement in inflammation Last colonoscopy many years ago, patient has usually been doing Cologuard vital signs Vital Sign Date Time Temp Pulse Resp B/P (MAP) Pulse Ox O2 Delivery O2 Flow Rate FiO2 12/28/24 17:00 98.1 79 18 193/80 (117) 97 98.1 12/28/24 08:00 Room Air* 0 21 Total Intake and Output 12/27/24 12/27/24 12/28/24 15:00 23:00 07:00 Intake Total 150 ml 600 ml 100 ml Balance 150 ml 600 ml 100 ml medications Current Medications Medications Dose Ordered Sig/Satish Route Start Time Stop Time Status Last Admin Dose Admin Nitroglycerin 0.4 mg Q5MINP PRN SL 12/26/24 16:30 Morphine Sulfate 2 mg Q4HPRN PRN IV 12/26/24 17:45 Piperacillin Sod/ Tazobactam Sod 100 ml @ 25 mls/hr Q8HR IV 12/27/24 21:00 12/28/24 14:44 25 MLS/HR Diagnostic Test (Pha) 1 strip Q6HR 12/27/24 12:00 12/28/24 18:08 1 STRIP Insulin Human Regular Q6HR SC 12/27/24 12:00 12/28/24 18:08 4 UNITS Dextrose 50 ml UD PRN IV 12/27/24 10:15 Sodium Chloride 1,000 ml @ 75 mls/hr [id number] IV 12/28/24 09:45 12/28/24 13:09 75 MLS/HR Hydralazine HCl 10 mg Q6HP PRN IV 12/28/24 09:45 12/28/24 13:05 10 MG Morphine Sulfate 2 mg Q30M PRN IV 12/28/24 10:15 objective General: NAD, AAOX3 Chest: lung deluca clear to auscultation Heart: RRR, no murmur Abdomen:Soft nontender with a mild left-sided fullness Extremities without clubbing cyanosis or edema laboratory and microbiology Laboratory Tests 12/28/24 08:34 12/28/24 06:[address] SCAN ABD PELVIS IMPRESSION: Moderate colonic diverticulosis appears decreased in inflammation compared to prior exam located at the sigmoid colon. No focal fluid collection to suggest for abscess. Devlin within bladder that appears mildly inflammed could be cystitis.Test 12/28/24 06:36 Range/Units Serum Glucose 199 H 74-106 mg/dL Problems(with codes): (1) Acute diverticulitis (2) Acute abdominal pain Prognosis Plan Check urine culture for suspected cystitis Continue IV antibiotics Ice chips only Supportive care I will follow up patient with you Monitor labs and check CEA level Outpatient elective colonoscopy when diverticulitis resolves Dietary Evaluation Review Comments: CCHO-60 cardiac diet when out of NPO and medically feasible. Expected Outcomes/Goals: Controlled DM, gradual wt loss, recover from sepsis Plan discussed with: Patient (0 he is given marijuana something else also normalize also in charge), Spouse ANA NOBLE MD December 28, 2024 20:43
[2024-12-29] VITALS (8 sets, daily range): BP systolic 148–174; BP diastolic 75–129; PULSE 64–96; RESP 16–19; TEMP 97.5–98.6; O2SAT 96–100
[2024-12-29 06:48] LABS: Basophils # (auto) 0.1 10 ^3/uL (0-0.2); Basophils % (auto) 0.7 % (0.0-2.0); Eosinophils # (auto) 0 10 ^3/uL (0-0.8); Eosinophils % (auto) 0.1 % (0.0-7.0); Hematocrit 42.9 % (36.0-46.0); Hemoglobin 14.1 g/dL (12.2-16.2); Lymphocytes # (auto) 1.1 10 ^3/uL (0.4-5.4); Mean Corpuscular Hemoglobin 28.3 pg (28.0-32.0); Mean Corpuscular Hgb Conc. 32.9 g/dL (32.0-36.0); Mean Corpuscular Volume 85.9 fL (80.0-100.0); Monocytes % (auto) 6.1 % (0.0-12.0); Neutrophils # (auto) 14.2 10 ^3/uL (1.6-8.6); Neutrophils % (auto) 86.1 % (37.0-80.0); Nucleated Red Blood Cells % 0.1 %; Platelet Count (auto) 261 10^3/uL (140-450); Red Blood Cells 4.99 10^6/uL (4.0-5.20); Red Cell Distribution Width 16.9 % (11.8-14.3); White Blood Cell 16.4 10^3/uL (4.4-10.8)
[2024-12-29 07:01] LABS: Alanine Aminotransferase 16 U/L (7-40); Albumin 4.3 g/dL (3.2-4.8); Alkaline Phosphatase 85 U/L (46-116); Anion Gap 15 (5-15); Aspartate Aminotransferase 20 U/L (13-40); BUN/Creatinine Ratio 23.6 (10.0-20.0); Blood Urea Nitrogen 17 mg/dL (9-23); Calcium 9.7 mg/dL (8.7-10.4); Carbon Dioxide 21 mmol/L (20-31); Sodium 143 mmol/L (136-145); Total Protein 7.8 g/dL (5.7-8.2)
[2024-12-29 07:03] LABS: Bilirubin, Total 1.2 mg/dL (0.2-1.0); Chloride 107 mmol/L (98-107); Glucose 265 mg/dL (74-106); Potassium 2.7 mmol/L (3.5-5.1)
[2024-12-29] MEDS: POTASSIUM CHLORIDE 80 MEQ, LIDOCAINE 1% (LOCAL ANESTH.) 6 ML in SODIUM CHL 0.9% 500 ML IV ONE (12:30)
--- NOTE | 2024-12-29 12:37 | DVHPN2 ---
Progress Note - Dictate Date Seen: December 29, 2024 Medical Necessity Reason Pt with a Central, PICC or Fol: No Subjective Patient seen at bedside resting comfortably She is still NPO; No nausea vomiting or bloating Abdominal pain is improved Patient had multiple bowel movements yesterday Leukocytosis improving Repeat CT scan shows slight improvement in inflammation Last colonoscopy many years ago, patient has usually been doing Cologuard vital signs Vital Sign Date Time Temp Pulse Resp B/P (MAP) Pulse Ox O2 Delivery O2 Flow Rate FiO2 12/29/24 10:43 174/129 12/29/24 09:00 98.0 73 19 99 98.0 12/29/24 08:00 Room Air* 0 21 Total Intake and Output 12/28/24 12/28/24 12/29/24 15:00 23:00 07:00 Intake Total 749 ml 100 ml Output Total 1000 ml 1400 ml Balance -251 ml -1300 ml medications Current Medications Medications Dose Ordered Sig/Satish Route Start Time Stop Time Status Last Admin Dose Admin Nitroglycerin 0.4 mg Q5MINP PRN SL 12/26/24 16:30 Morphine Sulfate 2 mg Q4HPRN PRN IV 12/26/24 17:45 Piperacillin Sod/ Tazobactam Sod 100 ml @ 25 mls/hr Q8HR IV 12/27/24 21:00 12/28/24 21:24 25 MLS/HR Diagnostic Test (Pha) 1 strip Q6HR 12/27/24 12:00 12/29/24 06:00 1 STRIP Insulin Human Regular Q6HR SC 12/27/24 12:00 12/29/24 06:31 6 UNITS Dextrose 50 ml UD PRN IV 12/27/24 10:15 Sodium Chloride 1,000 ml @ 75 mls/hr [id number] IV 12/28/24 09:45 12/28/24 13:09 75 MLS/HR Hydralazine HCl 10 mg Q6HP PRN IV 12/28/24 09:45 12/29/24 10:43 10 MG Morphine Sulfate 2 mg Q30M PRN IV 12/28/24 10:15 objective General: NAD, AAOX3 Chest: lung deluca clear to auscultation Heart: RRR, no murmur Abdomen:Soft nontender with a mild left-sided fullness Extremities without clubbing cyanosis or edema laboratory and microbiology Laboratory Tests 12/29/24 05:47 Test 12/29/24 05:47 Range/Units Serum Glucose 265 H 74-106 mg/dL Problems(with codes): (1) Acute abdominal pain (2) Sepsis due to urinary tract infection (3) Acute diverticulitis Prognosis Plan Check urine culture for suspected cystitis Continue IV antibiotics Ice chips only Supportive care I will follow up patient with you as needed Monitor labs ;CEA level normal at 2.47 Outpatient elective colonoscopy when diverticulitis resolves Dietary Evaluation Review Comments: CCHO-60 cardiac diet when out of NPO and medically feasible. Expected Outcomes/Goals: Controlled DM, gradual wt loss, recover from sepsis Plan discussed with: Patient, Spouse ANA NOBLE MD December 29, 2024 12:37
--- NOTE | 2024-12-29 19:03 | DVHPN2 ---
Subjective In bed feeling much better Reviewed: H&P Changes from previous H/P or p: No Changes Eyes: No Pain, No Vision change, No Conjunctivae inflammation, No Eyelid inflammation, No Other, No Redness ENT: No Ear pain, No Ear discharge, No Nose pain, No Nose discharge, No Nose congestion, No Mouth pain, No Mouth swelling, No Throat pain, No Throat swelling, No Other Cardiovascular: No Chest Pain, No Palpitations, No Orthopnea, No Paroxysmal Noc. Dyspnea, No Edema, No Lt Headedness, No Other Respiratory: No Cough, No Dry, No Shortness of breath, No SOB with excertion, No Wheezing, No Hemoptysis, No Pleuritic Pain, No Sputum, No Other Gastrointestinal: No Nausea, No Vomiting, No Abdominal Pain, No Diarrhea, No Constipation, No Melena, No Hematochezia, No Other Genitourinary: No Dysuria, No Frequency, No Incontinence, No Hematuria, No Retention, No Other Musculoskeletal: No other, No neck pain, No shoulder pain, No arm pain, No back pain, No hand pain, No leg pain, No foot pain Skin: No Rash, No Lesions, No Jaundice, No Bruising, No Other Objective Vitals Vital Signs Date Time Temp Pulse Resp B/P (MAP) Pulse Ox O2 Delivery O2 Flow Rate FiO2 12/29/24 17:00 97.8 64 19 148/85 (106) 96 97.8 12/29/24 08:00 Room Air* 0 21 Intake/Output Intake and Output 12/29/24 07:00 Intake Total 849 ml Output Total 2400 ml Balance -1551 ml Intake Oral 0 ml IV Total 849 ml Output Urine Total 2400 ml General Appearance: Alert, Oriented X3 Lungs: Clear to auscultation Cardiovascular: Regular rate, Normal S1, Normal S2 Medications Current Medications Medications Dose Ordered Sig/Satish Route Start Time Stop Time Status Last Admin Dose Admin Nitroglycerin 0.4 mg Q5MINP PRN SL 12/26/24 16:30 Morphine Sulfate 2 mg Q4HPRN PRN IV 12/26/24 17:45 Piperacillin Sod/ Tazobactam Sod 100 ml @ 25 mls/hr Q8HR IV 12/27/24 21:00 12/28/24 21:24 25 MLS/HR Diagnostic Test (Pha) 1 strip Q6HR 12/27/24 12:00 12/29/24 17:51 1 STRIP Insulin Human Regular Q6HR SC 12/27/24 12:00 12/29/24 17:49 6 UNITS Dextrose 50 ml UD PRN IV 12/27/24 10:15 Sodium Chloride 1,000 ml @ 75 mls/hr [id number] IV 12/28/24 09:45 12/28/24 13:09 75 MLS/HR Hydralazine HCl 10 mg Q6HP PRN IV 12/28/24 09:45 12/29/24 10:43 10 MG Morphine Sulfate 2 mg Q30M PRN IV 12/28/24 10:15 Laboratory Results Laboratory Tests 12/29/24 05:47 Chemistry Test 12/29/24 05:47 Albumin 4.3 g/dL (3.2-4.8) Calcium Level 9.7 mg/dL (8.7-10.4) Total Protein 7.8 g/dL (5.7-8.2) LFT Test 12/29/24 05:47 Alanine Aminotransferase (ALT) 16 U/L (7-40) Alkaline Phosphatase 85 U/L (46-116) Aspartate Amino Transferase (AST) 20 U/L (13-40) Total Bilirubin 1.2 mg/dL (0.2-1.0) H Urinalysis Test 12/28/24 10:34 Urine Color Light-yellow (Yellow) Urine Clarity Clear (Clear) Urine pH 5.5 (5.0-9.0) Urine Specific [place] 1.014 (1.001-1.035) Urine Protein Trace (Negative) H Urine Ketones 1+ (Negative) H Urine Blood Negative /uL (Negative) Urine Nitrite Negative (Negative) Urine Bilirubin Negative (Negative) Urine Urobilinogen Normal mg/dL (Negative) Urine Leukocyte Esterase 1+ /uL (Negative) Urine RBC 1 /hpf (0 - 4) Urine Microscopic WBC 11 /HPF (0-5) H Urine Squamous Epithelial Cells Few /hpf (<5) Urine Bacteria None seen /hpf (None Seen) Urine Creatinine 22.00 mg/dL (30.0-125.0) L Urine Protein/Creatinine Ratio 1.99 Urine Glucose 4+ mg/dL (Normal) H Urine Total Protein 43.7 mg/dL (1-14) H Microbiology Microbiology Date/Time Source Procedure Growth Status 12/26/24 13:21 Blood Blood Culture - Preliminary NO GROWTH AFTER 72 HOURS OF INCUBATION. Resulted Assessment/Plan Assessment/Plan #1 acute diverticulitis with sepsis: ivf, iv zosyn, gi eval, repeat ct abd with contrast #2 dm: ssi #3 obesity #4 s/p aicd #5 acute on chronic systolic/diastolic heart failure: lasix iv #6 htn #7 hypokalemia: replace Plan discussed with: Patient Date of Service: December 29, 2024 Billing Provider: FARIDA FERREIRA MD Common Visit Codes: [id number] INP/OBS CARE(HIGH) FARIDA FERREIRA MD December 29, 2024 19:03
[2024-12-30] VITALS (7 sets, daily range): BP systolic 117–164; BP diastolic 56–97; PULSE 56–88; RESP 16–20; TEMP 97.7–98.5; O2SAT 93–96
[2024-12-30 06:16] LABS: Urine Bacteria FEW /hpf (None Seen); Urine Blood 1+ /uL (Negative); Urine Clarity Clear (Clear); Urine Color Yellow (Yellow); Urine Mucus FEW (None Seen); Urine Protein, UAD 1+ (Negative); Urine Specific Gravity 1.024 (1.001-1.035); Urine Squamous Epithelial Cell FEW /hpf (<5); Urine Urobilinogen Normal (Negative); Urine WBC 38 /HPF (0-5); Urine pH 5.5 (5.0-9.0)
[2024-12-30] MEDS: IOHEXOL 300 MG/ML 100ML BOTTLE IJ ONE (07:42)
[2024-12-30 11:10] LABS: Basophils # (auto) 0.2 10 ^3/uL (0-0.2); Basophils % (auto) 1.4 % (0.0-2.0); Eosinophils # (auto) 0.5 10 ^3/uL (0-0.8); Eosinophils % (auto) 3.5 % (0.0-7.0); Hemoglobin 12.8 g/dL (12.2-16.2); Lymphocytes # (auto) 1.9 10 ^3/uL (0.4-5.4); Lymphocytes % (auto) 14.2 % (10.0-50.0); Mean Corpuscular Hemoglobin 28.1 pg (28.0-32.0); Mean Corpuscular Hgb Conc. 32.9 g/dL (32.0-36.0); Mean Corpuscular Volume 85.4 fL (80.0-100.0); Monocytes # (auto) 1.1 10 ^3/uL (0-1.3); Neutrophils # (auto) 9.9 10 ^3/uL (1.6-8.6); Neutrophils % (auto) 72.9 % (37.0-80.0); Nucleated Red Blood Cells % 0.1 %; Platelet Count (auto) 264 10^3/uL (140-450); Red Blood Cells 4.56 10^6/uL (4.0-5.20); Red Cell Distribution Width 16.7 % (11.8-14.3); White Blood Cell 13.6 10^3/uL (4.4-10.8)
[2024-12-30 11:17] LABS: Potassium 3.6 mmol/L (3.5-5.1); Sodium 140 mmol/L (136-145)
[2024-12-30 11:18] LABS: Calcium 8.9 mg/dL (8.7-10.4); Carbon Dioxide 20 mmol/L (20-31); Chloride 110 mmol/L (98-107)
[2024-12-30 11:23] LABS: BUN/Creatinine Ratio 22.9 (10.0-20.0); Blood Urea Nitrogen 19 mg/dL (9-23)
[2024-12-30 11:27] LABS: Glucose 274 mg/dL (74-106)
[2024-12-30 11:52] LABS: Anion Gap 10 (5-15)
[2024-12-30 15:37] LABS: Lactic Acid w/Reflex 2.6 mmol/L (0.4-2.0)
--- NOTE | 2024-12-30 17:57 | DVHPN2 ---
Subjective In bed feeling much better Reviewed: H&P Changes from previous H/P or p: No Changes Eyes: No Pain, No Vision change, No Conjunctivae inflammation, No Eyelid inflammation, No Other, No Redness ENT: No Ear pain, No Ear discharge, No Nose pain, No Nose discharge, No Nose congestion, No Mouth pain, No Mouth swelling, No Throat pain, No Throat swelling, No Other Cardiovascular: No Chest Pain, No Palpitations, No Orthopnea, No Paroxysmal Noc. Dyspnea, No Edema, No Lt Headedness, No Other Respiratory: No Cough, No Dry, No Shortness of breath, No SOB with excertion, No Wheezing, No Hemoptysis, No Pleuritic Pain, No Sputum, No Other Gastrointestinal: No Nausea, No Vomiting, No Abdominal Pain, No Diarrhea, No Constipation, No Melena, No Hematochezia, No Other Genitourinary: No Dysuria, No Frequency, No Incontinence, No Hematuria, No Retention, No Other Musculoskeletal: No other, No neck pain, No shoulder pain, No arm pain, No back pain, No hand pain, No leg pain, No foot pain Skin: No Rash, No Lesions, No Jaundice, No Bruising, No Other Objective Vitals Vital Signs Date Time Temp Pulse Resp B/P (MAP) Pulse Ox O2 Delivery O2 Flow Rate FiO2 12/30/24 16:40 98.5 83 16 139/93 (108) 95 98.5 12/30/24 08:00 Room Air* 0 21 Intake/Output Intake and Output 12/30/24 07:00 Intake Total 1225 ml Output Total 1025 ml Balance 200 ml Intake Oral 1225 ml Output Urine Total 1025 ml General Appearance: Alert, Oriented X3 Lungs: Clear to auscultation Cardiovascular: Regular rate, Normal S1, Normal S2 Medications Current Medications Medications Dose Ordered Sig/Satish Route Start Time Stop Time Status Last Admin Dose Admin Nitroglycerin 0.4 mg Q5MINP PRN SL 12/26/24 16:30 Morphine Sulfate 2 mg Q4HPRN PRN IV 12/26/24 17:45 Piperacillin Sod/ Tazobactam Sod 100 ml @ 25 mls/hr Q8HR IV 12/27/24 21:00 12/30/24 14:56 25 MLS/HR Diagnostic Test (Pha) 1 strip Q6HR 12/27/24 12:00 12/30/24 12:49 1 STRIP Insulin Human Regular Q6HR SC 12/27/24 12:00 12/30/24 12:50 4 UNITS Dextrose 50 ml UD PRN IV 12/27/24 10:15 Hydralazine HCl 10 mg Q6HP PRN IV 12/28/24 09:45 12/29/24 10:43 10 MG Morphine Sulfate 2 mg Q30M PRN IV 12/28/24 10:15 Laboratory Results Laboratory Tests 12/30/24 10:52 Chemistry Test 12/30/24 10:52 Calcium Level 8.9 mg/dL (8.7-10.4) Urinalysis Test 12/28/24 10:34 12/30/24 06:02 Urine Creatinine 22.00 mg/dL (30.0-125.0) L Urine Protein/Creatinine Ratio 1.99 Urine Total Protein 43.7 mg/dL (1-14) H Urine Color Yellow (Yellow) Urine Clarity Clear (Clear) Urine pH 5.5 (5.0-9.0) Urine Specific [place] 1.024 (1.001-1.035) Urine Protein 1+ (Negative) H Urine Ketones 1+ (Negative) H Urine Blood 1+ /uL (Negative) H Urine Nitrite Negative (Negative) Urine Bilirubin Negative (Negative) Urine Urobilinogen Normal mg/dL (Negative) Urine Leukocyte Esterase 1+ /uL (Negative) Urine RBC 7 /hpf (0 - 4) Urine Microscopic WBC 38 /HPF (0-5) H Urine Squamous Epithelial Cells Few /hpf (<5) Urine Bacteria Few /hpf (None Seen) H Urine Mucus Few (None Seen) Urine Glucose 4+ mg/dL (Normal) H Microbiology Microbiology Date/Time Source Procedure Growth Status 12/26/24 13:21 Blood Blood Culture - Preliminary NO GROWTH AFTER 72 HOURS OF INCUBATION. Resulted Assessment/Plan Assessment/Plan #1 acute diverticulitis with sepsis Continue IV abx Advance diet to full #2 dm: ssi #3 obesity #4 s/p aicd #5 acute on chronic systolic/diastolic heart failure: lasix iv #6 htn #7 hypokalemia: replace Plan discussed with: Patient My Orders Orders - FARIDA FERREIRA MD Procedure Category Date Status Time Complete Blood Count LAB 12/31/24 Verified 04:00 Complete Blood Count LAB 01/01/25 Verified 04:00 Basic Metabolic Panel LAB 12/31/24 Verified 04:00 Basic Metabolic Panel LAB 01/01/25 Verified 04:00 Date of Service: December 30, 2024 Billing Provider: FARIDA FERREIRA MD Common Visit Codes: [id number] INP/OBS CARE(HIGH) FARIDA FERREIRA MD December 30, 2024 17:57
[2024-12-31 01:00] VITALS: BP 156/99; PULSE 86; RESP 18; TEMP 98.4; O2SAT 96
[2024-12-31 05:19] VITALS: BP 164/95; PULSE 69; RESP 17; TEMP 97.8; O2SAT 98
[2024-12-31 05:38] LABS: Basophils # (auto) 0.3 10 ^3/uL (0-0.2); Basophils % (auto) 1.8 % (0.0-2.0); Eosinophils # (auto) 1.3 10 ^3/uL (0-0.8); Eosinophils % (auto) 7.5 % (0.0-7.0); Hematocrit 40.7 % (36.0-46.0); Hemoglobin 13.4 g/dL (12.2-16.2); Lymphocytes # (auto) 2.6 10 ^3/uL (0.4-5.4); Lymphocytes % (auto) 14.5 % (10.0-50.0); Mean Corpuscular Hemoglobin 28.5 pg (28.0-32.0); Mean Corpuscular Volume 86.5 fL (80.0-100.0); Monocytes # (auto) 1.2 10 ^3/uL (0-1.3); Monocytes % (auto) 6.9 % (0.0-12.0); Neutrophils # (auto) 12.2 10 ^3/uL (1.6-8.6); Neutrophils % (auto) 69.3 % (37.0-80.0); Nucleated Red Blood Cells % 0.2 %; Platelet Count (auto) 290 10^3/uL (140-450); Red Blood Cells 4.71 10^6/uL (4.0-5.20); Red Cell Distribution Width 17.3 % (11.8-14.3); White Blood Cell 17.6 10^3/uL (4.4-10.8)
[2024-12-31 05:48] LABS: Anion Gap 8 (5-15); Carbon Dioxide 23 mmol/L (20-31); Sodium 143 mmol/L (136-145)
[2024-12-31 05:50] LABS: Calcium 9.3 mg/dL (8.7-10.4)
[2024-12-31 05:54] LABS: BUN/Creatinine Ratio 16.5 (10.0-20.0); Blood Urea Nitrogen 13 mg/dL (9-23); Glucose 96 mg/dL (74-106)
[2024-12-31 05:55] LABS: Chloride 112 mmol/L (98-107); Potassium 3.5 mmol/L (3.5-5.1)
[2024-12-31 08:00] VITALS: PULSE 74
[2024-12-31 09:05] VITALS: BP 159/76; PULSE 70; RESP 21; TEMP 96.9; O2SAT 98
[2024-12-31 12:33] VITALS: BP 118/66; PULSE 94; RESP 20; TEMP 97.6; O2SAT 96
--- NOTE | 2024-12-31 15:14 | DVHPN2 ---
Subjective Not feeling today with some pain Reviewed: H&P Changes from previous H/P or p: No Changes Eyes: No Pain, No Vision change, No Conjunctivae inflammation, No Eyelid inflammation, No Other, No Redness ENT: No Ear pain, No Ear discharge, No Nose pain, No Nose discharge, No Nose congestion, No Mouth pain, No Mouth swelling, No Throat pain, No Throat swelling, No Other Cardiovascular: No Chest Pain, No Palpitations, No Orthopnea, No Paroxysmal Noc. Dyspnea, No Edema, No Lt Headedness, No Other Respiratory: No Cough, No Dry, No Shortness of breath, No SOB with excertion, No Wheezing, No Hemoptysis, No Pleuritic Pain, No Sputum, No Other Gastrointestinal: No Nausea, No Vomiting, No Abdominal Pain, No Diarrhea, No Constipation, No Melena, No Hematochezia, No Other Genitourinary: No Dysuria, No Frequency, No Incontinence, No Hematuria, No Retention, No Other Musculoskeletal: No other, No neck pain, No shoulder pain, No arm pain, No back pain, No hand pain, No leg pain, No foot pain Skin: No Rash, No Lesions, No Jaundice, No Bruising, No Other Objective Vitals Vital Signs Date Time Temp Pulse Resp B/P (MAP) Pulse Ox O2 Delivery O2 Flow Rate FiO2 12/31/24 12:33 97.6 94 20 118/66 (83) 96 97.6 12/31/24 08:00 Room Air* 0 21 Intake/Output Intake and Output 12/31/24 07:00 Intake Total 2182.5 ml Output Total 1450 ml Balance 732.5 ml Intake Oral 1520 ml IV Total 662.5 ml Output Urine Total 1450 ml General Appearance: Alert, Oriented X3 Lungs: Clear to auscultation Cardiovascular: Regular rate, Normal S1, Normal S2 Abdomen: Other (some tenderness in lower abdomen area, no guarding) Medications Current Medications Medications Dose Ordered Sig/Satish Route Start Time Stop Time Status Last Admin Dose Admin Nitroglycerin 0.4 mg Q5MINP PRN SL 12/26/24 16:30 Morphine Sulfate 2 mg Q4HPRN PRN IV 12/26/24 17:45 Piperacillin Sod/ Tazobactam Sod 100 ml @ 25 mls/hr Q8HR IV 12/27/24 21:00 12/31/24 14:40 25 MLS/HR Diagnostic Test (Pha) 1 strip Q6HR 12/27/24 12:00 12/31/24 12:03 1 STRIP Insulin Human Regular Q6HR SC 12/27/24 12:00 12/31/24 12:03 10 UNITS Dextrose 50 ml UD PRN IV 12/27/24 10:15 Hydralazine HCl 10 mg Q6HP PRN IV 12/28/24 09:45 12/31/24 10:11 10 MG Morphine Sulfate 2 mg Q30M PRN IV 12/28/24 10:15 Laboratory Results Laboratory Tests 12/31/24 05:00 Chemistry Test 12/31/24 05:00 Calcium Level 9.3 mg/dL (8.7-10.4) Urinalysis Test 12/28/24 10:34 12/30/24 06:02 Urine Creatinine 22.00 mg/dL (30.0-125.0) L Urine Protein/Creatinine Ratio 1.99 Urine Total Protein 43.7 mg/dL (1-14) H Urine Color Yellow (Yellow) Urine Clarity Clear (Clear) Urine pH 5.5 (5.0-9.0) Urine Specific [place] 1.024 (1.001-1.035) Urine Protein 1+ (Negative) H Urine Ketones 1+ (Negative) H Urine Blood 1+ /uL (Negative) H Urine Nitrite Negative (Negative) Urine Bilirubin Negative (Negative) Urine Urobilinogen Normal mg/dL (Negative) Urine Leukocyte Esterase 1+ /uL (Negative) Urine RBC 7 /hpf (0 - 4) Urine Microscopic WBC 38 /HPF (0-5) H Urine Squamous Epithelial Cells Few /hpf (<5) Urine Bacteria Few /hpf (None Seen) H Urine Mucus Few (None Seen) Urine Glucose 4+ mg/dL (Normal) H Microbiology Microbiology Date/Time Source Procedure Growth Status 12/30/24 06:07 Urine - [place] Urine Culture - Preliminary Resulted 12/26/24 13:21 Blood Blood Culture - Final NO GROWTH AFTER 5 DAYS OF INCUBATION. Complete Assessment/Plan Assessment/Plan #1 acute diverticulitis with sepsis Continue IV abx Hold diet diet due to worsening pain GI on consult If continues to have pain will repeat CT tomorrow #2 dm: ssi #3 obesity #4 s/p aicd #5 acute on chronic systolic/diastolic heart failure: lasix iv #6 htn #7 hypokalemia: replace She is medically stable for transfer [facility] continued care Plan discussed with: Patient My Orders Orders - FARIDA FERREIRA MD Procedure Category Date Status Time Full Liq Diet DIET 12/30/24 Transmitted Dinner Pt Request For Service PT 12/31/24 Logged 11:37 * Garment Folder CONS 12/31/24 Verified Consult Date of Service: Dec 31, 2024 Billing Provider: FARIDA FERREIRA MD Common Visit Codes: [id number] INP/OBS CARE(HIGH) FARIDA FERREIRA MD Dec 31, 2024 15:14
[2024-12-31 16:58] VITALS: BP 135/85; PULSE 78; RESP 17; TEMP 98.1; O2SAT 97
--- NOTE | 2024-12-31 17:46 | DVHDS2 ---
Discharge Summary Date of Admission December 26, 2024 at 16:22 Date of Discharge: Dec 31, 2024 Labs/Diagnostic Data: Laboratory Results Test 12/31/24 11:55 12/31/24 05:00 12/30/24 17:15 12/30/24 06:02 POC Glucose 411 mg/dl (70-106) White Blood Count 17.6 10^3/uL (4.4-10.8) Red Blood Count 4.71 10^6/uL (4.0-5.20) Hemoglobin 13.4 g/dL (12.2-16.2) Hematocrit 40.7 % (36.0-46.0) Mean Corpuscular Volume 86.5 fL (80.0-100.0) Mean Corpuscular Hemoglobin 28.5 pg (28.0-32.0) Mean Corpuscular Hemoglobin Concent 33.0 g/dL (32.0-36.0) Red Cell Distribution Width 17.3 % (11.8-14.3) Platelet Count 290 10^3/uL (140-450) Mean Platelet Volume 10.5 fL (6.9-10.8) Neutrophils (%) (Auto) 69.3 % (37.0-80.0) Lymphocytes (%) (Auto) 14.5 % (10.0-50.0) Monocytes (%) (Auto) 6.9 % (0.0-12.0) Eosinophils (%) (Auto) 7.5 % (0.0-7.0) Basophils (%) (Auto) 1.8 % (0.0-2.0) Neutrophils # (Auto) 12.2 10 ^3/uL (1.6-8.6) Lymphocytes # (Auto) 2.6 10 ^3/uL (0.4-5.4) Monocytes # (Auto) 1.2 10 ^3/uL (0-1.3) Eosinophils # (Auto) 1.3 10 ^3/uL (0-0.8) Basophils # (Auto) 0.3 10 ^3/uL (0-0.2) Nucleated Red Blood Cells 0.2 % Sodium Level 143 mmol/L (136-145) Potassium Level 3.5 mmol/L (3.5-5.1) Chloride Level 112 mmol/L (98-107) Carbon Dioxide Level 23 mmol/L (20-31) Anion Gap 8 (5-15) Blood Urea Nitrogen 13 mg/dL (9-23) Creatinine 0.79 mg/dL (0.550-1.02) Glomerular Filtration Rate Calc 74 mL/min (>90) BUN/Creatinine Ratio 16.5 (10.0-20.0) Serum Glucose 96 mg/dL (74-106) Calcium Level 9.3 mg/dL (8.7-10.4) Lactic Acid Level 1.7 mmol/L (0.4-2.0) Urine Color Yellow (Yellow) Urine Clarity Clear (Clear) Urine pH 5.5 (5.0-9.0) Urine Specific [place] 1.024 (1.001-1.035) Urine Protein 1+ (Negative) Urine Ketones 1+ (Negative) Urine Blood 1+ /uL (Negative) Urine Nitrite Negative (Negative) Urine Bilirubin Negative (Negative) Urine Urobilinogen Normal mg/dL (Negative) Urine Leukocyte Esterase 1+ /uL (Negative) Urine RBC 7 /hpf (0 - 4) Urine Microscopic WBC 38 /HPF (0-5) Urine Squamous Epithelial Cells Few /hpf (<5) Urine Bacteria Few /hpf (None Seen) Urine Mucus Few (None Seen) Urine Glucose 4+ mg/dL (Normal) Test 12/29/24 05:47 12/28/24 10:34 12/28/24 06:36 12/27/24 05:28 Total Bilirubin 1.2 mg/dL (0.2-1.0) Aspartate Amino Transferase (AST) 20 U/L (13-40) Alanine Aminotransferase (ALT) 16 U/L (7-40) Alkaline Phosphatase 85 U/L (46-116) Total Protein 7.8 g/dL (5.7-8.2) Albumin 4.3 g/dL (3.2-4.8) Carcinoembryonic Antigen 2.47 ng/mL (<=5.0) Urine Creatinine 22.00 mg/dL (30.0-125.0) Urine Protein/Creatinine Ratio 1.99 Urine Total Protein 43.7 mg/dL (1-14) Urine Opiates Screen Neg (NEGATIVE) Urine Fentanyl Screen Neg (NEGATIVE) Urine Barbiturates Screen Neg (NEGATIVE) Urine Phencyclidine Screen Neg (NEGATIVE) Urine Amphetamines Screen Neg (NEGATIVE) Urine Benzodiazepines Screen Neg (NEGATIVE) Urine Cocaine Screen Neg (NEGATIVE) Urine Cannabinoids Screen Neg (NEGATIVE) Lipase 31 U/L (12-53) Differential Total Cells Counted 100.0 (100) Neutrophils % (Manual) 90 (37.0-80.0) Band Neutrophils % (Manual) 0 Lymphocytes % (Manual) 5 (10.0-50.0) Monocytes % (Manual) 5 (0-12) Eosinophils % (Manual) 0 (0-7) Basophils % (Manual) 0 (0.0-2.0) Metamyelocytes % (manual) 0 Myelocytes % (Manual) 0 Promyelocytes % (Manual) 0 Blast Cells % (Manual) 0 Reactive Lymphocytes 0 Platelet Estimate Adequate Test 12/26/24 18:22 12/26/24 18:00 12/26/24 10:12 Prothrombin Time 10.9 sec (9.3-11.8) Prothrombin Time INR 1.03 (0.9-1.15) Influenza Type A Antigen Negative (Negative) Influenza Type B Antigen Negative (Negative) SARS-CoV-2 Antigen (Rapid) Negative (NEGATIVE) Hemoglobin A1c 7.0 % A1C (<5.7) Troponin I High Sensitivity 5 ng/L (</=34) Vitamin D 25-Hydroxy 70.5 ng/mL (30.0-100) Parathyroid Hormone (Intact) 24.6 pg/mL (18.4-80.1) Other Laboratory Tests 12/31/24 05:00 Brief Hx & Hospital Course: 84 year old female patient with past medical history of heart failure( pending echo), COPD, type 2 diabetes, pacemaker who presented to the ER with the chief complaint of generalized weakness and abdominal pain described as moderate ( patient poor historian). Patient was examied at bedside and reports feeling better with no acute complaints, laboratory findings confirmed severe sepsis which source was likely due to an acute diverticulitis as its showed in CT abdomen. Patient was started on metronidazole and ceftriaxone , blood cultures were ordered. echocardiogram pending. During hospital stay was on IV abx, improving pain, slowly advancing diet Condition at Discharge: Good Final Diagnosis/Problems List #1 acute diverticulitis with sepsis #2 dm: ssi #3 obesity #4 s/p aicd #5 acute on chronic systolic/diastolic heart failure: #6 h #7 hypokalemia: Discharge Disposition: Acute Care Facility Discharge Instruct/Medications Diet: Regular Activity: No Restrictions, As Tolerated Follow Up/Referral: PCP in 7 days Medications: same home medications Discharge Statement: "Patient was advised to return to the ER or call 911 if any headaches, dizziness, shortness of breath, chest pain, abdominal pain, bleeding, fevers, or worsening of medical condition. Patient was counseled about treatment plan, medications, possible side effects, patientverbalized understanding. All questions were answered to the best of my ability. This discharge took greater then 30 minutes in planning, reviewing documentation, counseling the patient, and discussing with other team members." ASSESSMENT ASSESSMENT Assessment Acute diverticulitis Sepsis Date of Service: Dec 31, 2024 Billing Provider: FARIDA FERREIRA MD Common Visit Codes: [id number] DISCH DAY >30min FARIDA FERREIRA MD Dec 31, 2024 17:46
== END 2024-12-31 19:00 | DRG 871 ==
LOC: EDBD 09:45 → ER 09:45 → OVERFLOW 16:22 → TELE-CENTR 23:58
PROVIDERS: ADMIT Hospitalist; ATTEND Hospitalist
DX: A41.9 Sepsis, unspecified organism (principal); I50.43 Acute on chronic combined systolic (congestive) and diastolic (congestive) heart failure; N39.0 Urinary tract infection, site not specified; K57.32 Diverticulitis of large intestine without perforation or abscess without bleeding; Z20.822 Contact with and (suspected) exposure to COVID-19; R65.20 Severe sepsis without septic shock; E83.52 Hypercalcemia; E87.6 Hypokalemia; J44.9 Chronic obstructive pulmonary disease, unspecified; E66.9 Obesity, unspecified; I11.0 Hypertensive heart disease with heart failure; E11.65 Type 2 diabetes mellitus with hyperglycemia; R91.8 Other nonspecific abnormal finding of lung field; Z90.710 Acquired absence of both cervix and uterus; Z90.49 Acquired absence of other specified parts of digestive tract; Z95.0 Presence of cardiac pacemaker; Z68.38 Body mass index [BMI] 38.0-38.9, adult
CPT/HCPCS: 36415; 70450; 71045; 74176; 74177; 80048; 80053; 80307; 81001; 82306; 82378; 82570; 82962; 83036; 83605; 83690; 83970; 84132; 84156; 84484; 85007; 85025; 85027; 85610; 87040; 87086; 87426; 87804; 93005; 93306; 96365; 97163; G0378; J1815; J2003; J2543; J3490

== ENCOUNTER 2025-01-29 13:59 | Inpatient (IN) | payer OTHER ==
[~2025-01-29] VITALS: Ht 162.6 cm; Wt 70.4 kg
[~2025-01-29 13:59] MED LIST changes: +ALBU2TAB11 PO; +ASPI325T6 PO; +ESTR1TAB6 PO; +INSREG3 IV; +INSUINJ2 SC; +KETO2CRE4 TOP; +METF-370 PO; +TRIA0.1P2 TOP
--- NOTE | 2025-01-29 14:29 | ED.PDOC ---
History of Present Illness HPI Comments 84-year-old female BIBA with prior medical history of hypertension, CHF, COPD, diabetes: Surgical history of appendectomy, cholecystectomy, hysterectomy, tonsillectomy, pacemaker, defibrillator in the chief complaint of generally weak. EMS report the at the snf they were informed that the patient has had a low blood sugar with weakness for the past week and was unable to surpass 50 four the BS, for which today the patient's blood sugar one down to 32 and the patient became altered, making the nurses called EMS. He patient D10 alert after. Patient notes that she has had burning urination and cough for a while but not during the past two days. Denies chills, fever, N/V/D, SOB, CP. No other associated symptoms, modifiers, recent injuries or sick contacts present at this time. Chief Complaint: Hypoglycemia Time Seen by MD: 14:10 Primary Care Provider: HENRIETTA Reviewed Notes: Nurses Notes, Track Worker Notes, Medications, Allergies Allergies: Coded Allergies: Sulfa Antibiotics (Verified Allergy, Unknown, 03/17/19) Home Meds Reported Medications Albuterol Sulfate (Albuterol Sulfate) 2 Mg Tab, 108 MCG PO Q6HP, MG 12/27/24 Aspirin (Aspirin) 325 Mg Tab, 81 MG PO DAILY for 30 Days, MG 12/27/24 Insulin Regular (Human) (Humulin R) 100 Unit/Ml Inj, 18 UNIT IV, INJ 12/27/24 Estradiol (Estradiol) 1 Mg Tab, 0.1 MG PO DAILY, MG 12/27/24 Triamcinolone Acetonide (Triamcinolone Acetonide) 0.1 % Pst, 1 APPLIC TOP, APPLIC 12/27/24 Ketoconazole (Ketoconazole) 2 % Cre, 1 APPLIC TOP DAILY, #15 GRAMS 12/27/24 Metformin Hydrochloride (Metformin Hcl) 500 Mg Tab, 500 MG PO IBID for 30 Days, MG 12/27/24 Insulin NPH (Human) (Isophane) (Humulin N) 100 Unit/Ml Inj, 20 UNIT SC, INJ 12/27/24 Insulin NPH (Human) (Isophane) (Humulin N) 100 Unit/Ml Inj, 18 UNIT SC, INJ 12/27/24 Losartan Potassium (Losartan Potassium) 25 Mg Tab, 1 TAB PO DAILY for 100 Days, #100 12/27/24 Atorvastatin Calcium (ATORVASTATIN CALCIUM) 40 Mg Tab, 1 TAB PO DAILY for 100 Days, #100 12/27/24 Allopurinol (Allopurinol) 100 Mg Tab, 1 TAB PO DAILY for 100 Days, #100 12/27/24 Sertraline Hcl (Sertraline Hcl) 25 Mg Tab, 1 TAB PO DAILY for 30 Days, #30 12/27/24 Information Source: Patient Mode of Arrival: EMS Severity: Moderate Timing: Days Duration: Since onset Prehospital treatment: None Past Medical History PAST MEDICAL HISTORY: CHF, COPD, DM, HTN Surgical History: Appendectomy, Cholecystectomy, Hysterectomy, Pacemaker, Tonsillectomy Surgical History (Other): Defibrillator [employer] History: Denies all [employer] Hx Family History Family History: Reviewed,noncontributory to illness, Unknown Social History Smoker: Non-Smoker Alcohol: Denies ETOH Use Drugs: Denies Drug Use Lives In: Home Constitutional: reports: weakness; denies: chills, diaphoresis, fatigue, fever, malaise, sweats, others EENTM: denies: blurred vision, double vision, ear bleeding, ear discharge, ear drainage, ear pain, ear ringing, eye pain, eye redness, hearing loss, mouth pain, mouth swelling, nasal discharge, nose bleeding, nose congestion, nose pain, photophobia, tearing, throat pain, throat swelling, voice changes, others Respiratory: reports: cough; denies: hemoptysis, orthopnea, SOB at rest, short ness of breath, SOB with excertion, stridor, wheezing, others Cardiovascular: denies: chest pain, dizzy spells, diaphoresis, Dyspnea on exertion, edema, irregular heart beat, left arm pain, lightheadedness, palpitations, PND, syncope, others Gastrointestinal: denies: abdomen distended, abdominal pain, blood streaked bowels, constipated, diarrhea, dysphagia, difficulty swallowing, hematemesis, melena, nausea, poor appetite, poor fluid intake, rectal bleeding, rectal pain, vomiting, others Genitourinary: denies: abnormal vagina bleeding, burning, dyspareunia, dysuria, flank pain, frequency, hematuria, incontinence, pain, , vagina discharge, urgency, others Neurological: denies: dizziness, fainting, headache, left sided numbness, left sided weakness, numbness, paresthesia, pre-existing deficit, right sided numbness, right sided weakness, seizure, speech problems, tingling, tremors, weakness, others Musculoskeletal: denies: back pain, gout, joint pain, joint swelling, muscle pain, muscle stiffness, neck pain, others Integumetry: denies: bruises, change in color, change in hair/nails, dryness, laceration, lesions, lumps, rash, wounds, others Allergic/Immunocompromised: denies: Difficulty Healing, Frequent Infections, Hives, Itching, others Hematologic/Lymphatic: denies: anemia, blood clots, easy bleeding, easy bruising, swollen glands, others Endocrine: denies: excessive hunger, excessive sweating, excessive thirst, excessive urination, flushing, intolerance to cold, intolerance to heat, unexplained weight gain, unexplained weight loss, others Psychiatric: denies: anxiety, bipolar disorder, depression, hopeless, panic disorder, schizophrenia, sleepless, suicidal, others All Other Systems: Reviewed and Negative Physical Exam General Appearance: Moderate Distress, Normal HEENT: Normal ENT Inspection, Pharynx Normal, TMs Normal Neck: Full Range of Motion, Non-Tender, Normal, Normal Inspection Respiratory: Chest Non-Tender, Lungs Clear, No Accessory Muscle Use, No Respiratory Distress, Normal Breath Sounds Cardiovascular: No Edema, No JVD, No Murmur, No Gallop, Normal Peripheral Pulses, Regular Rate/Rhythm Breast Exam: Deferred Gastrointestinal: No Organomegaly, Non Tender, No Pulsatile Mass, Normal Bowel Sounds, Soft Genitalia: Deferred Pelvic: Deferred Rectal: Deferred Extremities: No calf tenderness, Normal capillary refill, Normal inspection, Normal range of motion, Non-tender, No pedal edema Musculoskeletal : Apperance: Normal Neurologic: Alert, double backer II-XII nml as Tested, No Motor Deficits, Normal Affect, Normal Mood, No Sensory Deficits Cerebellar Function: NOT DONE Reflexes: NOT DONE Skin: Dry, Normal Color, Warm Peripheral Pulses: 3+ Radial (R), 3+ Radial (L) Lymphatic: No Adenopathy Was a procedure done? Was a procedure done?: No Differential Dx Considerations may include: Hypoglycemia Electrolyte imbalance X-Ray, Labs, Meds, VS Vital Signs Date Time Temp Pulse Resp B/P (MAP) Pulse Ox O2 Delivery O2 Flow Rate FiO2 01/29/25 16:14 97.4 72 17 144/76 97 0.0 21 97.4 01/29/25 16:08 97 Room Air* 0 01/29/25 16:08 97 Room Air 0.0 01/29/25 15:54 97.4 71 16 144/76 (98) 99 97.4 01/29/25 15:52 71 16 99 Room Air* 0 21 01/29/25 14:05 98.3 104 18 143/88 (106) 98 98.3 01/29/25 14:01 71 Lab Test 01/29/25 15:08 01/29/25 14:51 01/29/25 14:46 Range/Units POC Glucose 132 H 49 *L 70-106 mg/dl White Blood Count 12.1 H 4.4-10.8 10^3/uL Red Blood Count 4.73 4.0-5.20 10^6/uL Hemoglobin 13.2 12.2-16.2 g/dL Hematocrit 40.7 36.0-46.0 % Mean Corpuscular Volume 85.9 80.0-100.0 fL Mean Corpuscular Hemoglobin 27.9 L 28.0-32.0 pg Mean Corpuscular Hemoglobin Concent 32.5 32.0-36.0 g/dL Red Cell Distribution Width 17.0 H 11.8-14.3 % Platelet Count 231 140-450 10^3/uL Mean Platelet Volume 10.1 6.9-10.8 fL Neutrophils (%) (Auto) 63.3 37.0-80.0 % Lymphocytes (%) (Auto) 21.3 10.0-50.0 % Monocytes (%) (Auto) 9.9 0.0-12.0 % Eosinophils (%) (Auto) 4.6 0.0-7.0 % Basophils (%) (Auto) 0.9 0.0-2.0 % Neutrophils # (Auto) 7.7 1.6-8.6 10 ^3/uL Lymphocytes # (Auto) 2.6 0.4-5.4 10 ^3/uL Monocytes # (Auto) 1.2 0-1.3 10 ^3/uL Eosinophils # (Auto) 0.6 0-0.8 10 ^3/uL Basophils # (Auto) 0.1 0-0.2 10 ^3/uL Nucleated Red Blood Cells 0.1 % Sodium Level 145 136-145 mmol/L Potassium Level 3.8 3.5-5.1 mmol/L Chloride Level 109 H 98-107 mmol/L Carbon Dioxide Level 26 20-31 mmol/L Anion Gap 10 5-15 Blood Urea Nitrogen 16 9-23 mg/dL Creatinine 0.75 0.550-1.02 mg/dL Glomerular Filtration Rate Calc 79 >90 mL/min BUN/Creatinine Ratio 21.3 H 10.0-20.0 Serum Glucose 42 *L 74-106 mg/dL Calcium Level 10.9 H 8.7-10.4 mg/dL Troponin I High Sensitivity 6 </=34 ng/L Current Medications Medications (Trade) Dose Ordered Sig/Satish Route Start Time Stop Time Status Last Admin Sodium Chloride 1,000 ml @ 1,000 mls/hr Q1H ONCE IV 01/29/25 14:30 01/29/25 15:29 DC 01/29/25 15:10 Dextrose 50 ml ONCE ONCE IV 01/29/25 15:15 01/29/25 15:16 DC 01/29/25 15:12 Diagnostic Test (Pha) (Accu-Chek Comfort Curve T) 1 strip IQ4HR 01/29/25 16:00 01/29/25 16:17 Patient alert. Blood sugar fluctuating. Vitals stable. Answering questions. Saturation pristine on room air. Gave dextrose. Explained to the patient. Continue to monitor. EKG reviewed does not show any acute changes. [facility] approved inpatient admission [id number]. Time of 1ST Reevaluation: 14:40 Reevaluation 1ST: Unchanged Patient Education/Counseling: Diagnosis, Treatment, Prognosis Family Education/Counseling: No Family Present SEPSIS Sepsis Screen Date sepsis recognized/suspect: Jan 29, 2025 Time Sepsis recognized/suspect: 1405 Recent Procedure: No On Antibiotic Therapy: No Respiratory Rate >20: No Heart Rate >90: Yes Temp<36 C (96.8 F) or >38.3 C: No SBP <90 or MAP <65 mmHG: No New Acute Mental Status Change: No Is the patient on CPAP, BIPAP,: No Physician Orders Chest Portable (01/29/25 14:21) Urinalysis (01/29/25 14:21) Albuterol Medneb (Ventolin Medneb) (01/29/25 15:45) Aspirin Tablet (01/30/25 10:00) Atorvastatin (Lipitor) (01/29/25 22:00) Hydralazine Injection (Apresoline Inject (01/29/25 15:45) Ceftriaxone 1gm/50ml D5w (Rocephin) (01/30/25 09:00) Doxycycline 100mg/100ml (Vibramycin) (01/29/25 15:45) Consistent Carb(Ccho)Diabetes (01/29/25 Dinner) Glucose Blood (Accu-Chek Comfort Curve T (01/29/25 16:00) Insulin R (Human) (Insulin R) (01/29/25 16:00) Dextrose 50% Syringe (01/29/25 15:45) Allergies (01/29/25 15:34) Code Status (01/29/25 15:34) Sodium Chloride Lock (Saline Lock Ns) (01/29/25 22:00) Oxygen Per Hour (01/29/25 15:34) Hydrocodone-Acet 5/325mg Tab ([place] 5/32 (01/29/25 15:45) Ondansetron Hcl (Zofran) (01/29/25 15:45) Docusate Sodium Capsule (Colace Capsule) (01/29/25 15:45) Fall Risk Precautions In Place QSHIFT (01/29/25 15:34) Complete Blood Count (01/30/25 04:00) Comprehensive Metabolic Panel (01/30/25 04:00) Condition: Serious (01/29/25 15:34) Acetaminophen Tablet (Tylenol Tablet) (01/29/25 15:45) Maintain Bed Rest (01/29/25 15:34) Sequential Compression Device (01/29/25 ) Vital Signs Date Time Temp Pulse Resp B/P (MAP) Pulse Ox O2 Delivery O2 Flow Rate FiO2 01/29/25 16:14 97.4 72 17 144/76 97 0.0 21 97.4 01/29/25 16:08 97 Room Air* 0 21 01/29/25 16:08 97 Room Air 0.0 01/29/25 15:54 97.4 71 16 144/76 (98) 99 97.4 01/29/25 15:52 71 16 99 Room Air* 0 21 01/29/25 14:05 98.3 104 18 143/88 (106) 98 98.3 01/29/25 14:01 71 Laboratory Tests Test 01/29/25 14:51 White Blood Count 12.1 10^3/uL (4.4-10.8) H Medications Medications Dose Ordered Sig/Satish Route Start Time Stop Time Status Last Admin Dose Admin Dextrose 50 ml ONCE ONCE IV 01/29/25 15:15 01/29/25 15:16 DC 01/29/25 15:12 Diagnostic Test (Pha) 1 strip IQ4HR 01/29/25 16:00 01/29/25 16:17 Sodium Chloride 1,000 ml @ 1,000 mls/hr Q1H ONCE IV 01/29/25 14:30 01/29/25 15:29 DC 01/29/25 15:10 Departure 1 Departure Time of Disposition: 14:59 Impression: Primary Impression: Hypoglycemia Disposition: ADMITTED INPATIENT Admit to: Med Surg Condition: Guarded Critical Care Note Critical Care Time?: No Stability Stability form required: No Heart Score Heart Score: Heart Score Response (Comments) Value History Slightly Suspicious 0 EKG Normal 0 Age >65 2 Risk Factors >3 or Hx ASHD 2 Troponin Normal limit 0 Total 4 I personally scribed for VAHID BURROWS MD ([email or web address]) on 01/29/25 at 14:29. Electronically submitted by Harris Villareal ([email or web address]). VAHID BURROWS MD Jan 29, 2025 14:29
--- NOTE | 2025-01-29 14:51 | DVH ---
CHEST RADIOGRAPH Indication: sob Technique: Single frontal view of the chest was obtained COMPARISON: XY CHEST PORTABLE on DOS: 12/28/24, XY CHEST PORTABLE on DOS: 12/26/24 FINDINGS: Lines and Tubes: Left chest AICD Lungs: Diffuse increased interstitial prominence Pleura: No effusion. No pneumothorax. Cardiomediastinal contours: Unremarkable Bones: Unremarkable IMPRESSION: Findings fibrotic change with possible superimposed mild pulmonary vascular congestion or viral pneum onia.
[2025-01-29 15:04] LABS: Hematocrit 40.7 % (36.0-46.0); Hemoglobin 13.2 g/dL (12.2-16.2); Mean Corpuscular Hemoglobin 27.9 pg (28.0-32.0); Mean Corpuscular Volume 85.9 fL (80.0-100.0); Nucleated Red Blood Cells % 0.1 %
[2025-01-29] MEDS: SODIUM CHLORIDE 0.9% 1,000 ML IV ONE (15:10)
[2025-01-29] MEDS: DEXTROSE 50% SYRINGE 50 ML IV ONE (15:10)
[2025-01-29] MEDS: DEXTROSE (50%) 50ML SYRG IV ONE (15:12)
[2025-01-29 15:13] LABS: Anion Gap 10 (5-15); Carbon Dioxide 26 mmol/L (20-31); Potassium 3.8 mmol/L (3.5-5.1); Sodium 145 mmol/L (136-145)
[2025-01-29 15:19] LABS: BUN/Creatinine Ratio 21.3 (10.0-20.0); Blood Urea Nitrogen 16 mg/dL (9-23); Calcium 10.9 mg/dL (8.7-10.4); Chloride 109 mmol/L (98-107)
[2025-01-29 15:23] LABS: Glucose 42 mg/dL (74-106)
--- NOTE | 2025-01-29 15:32 | ECG ---
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
[2025-01-29] MEDS ORDERED: DEXTROSE (50%) 50ML SYRG IV PRN (15:45)
[2025-01-29] MEDS ORDERED: ONDANSETRON HCL 4 MG/2 ML VIAL IV PRN (15:45)
[2025-01-29] MEDS ORDERED: ALBUTEROL SULF 2.5 MG/0.5ML(0.5%) NEB SOLN NEB PRN (15:45)
[2025-01-29] MEDS ORDERED: DOCUSATE SOD 100 MG CAP PO PRN (15:45)
[2025-01-29 15:52] VITALS: PULSE 71; RESP 16; O2SAT 99
[2025-01-29] MEDS: InsuLIN REG 1unit/0.01ml Soln (100units/ml) SC SCH (16:00)
[2025-01-29 16:08] VITALS: O2SAT 97
[2025-01-29 16:14] VITALS: BP 144/76; PULSE 72; RESP 17; TEMP 97.4; O2SAT 97
[2025-01-29] MEDS: ACCU-CHEK COMFORT CURVE STRIP VI SCH (16:17)
[2025-01-29] MEDS: cefTRIAXone 1GM/50ML D5W 50 ML IV ONE (16:46)
[2025-01-29] MEDS: DEXTROSE 10% 1,000 ML IV ONE (17:58)
[2025-01-29] MEDS: DOXYCYCLINE 100MG/100ML 100 ML IV SCH (18:03)
[2025-01-29 18:15] VITALS: O2SAT 96
--- NOTE | 2025-01-29 18:26 | DVHHP2 ---
History of Present Illness Reason for Visit: Diabetes mellitus with hypoglycemia History of Present Illness The patient is a 84-year-old female with past medical history of COPD, CHF, diabetes mellitus, and hypertension who presented to [facility] ED with complaint of generalized weakness. As reported, patient is currently residing at [facility] facility, staff member noted patient had low blood sugar at 50mg/dL with generalized weakness, altered, so EMS were called. Patient was given D10 EN route to our facility ED. Patient was seen and evaluated in the ED, laboratory data shows WBC 12.1, platelets 231, sodium 145, potassium 3.8, BUN 16, creatinine 0.75, glucose 42, calcium 10.9, troponin 6, blood pressure 143/88, heart rate 104, temperature 98.3 F, O2 saturation 98% on oxygen. Chest x-ray revealing fibrotic change with possible superimposed mild pulmonary vascular congestion or viral pneumonia. Patient was started on IV antibiotic re gimen doxycycline, please see medication orders section in the computer. On my assessment, patient denied chest pain, no headache, no dizziness, no diaphoresis, no shortness of breath, no nausea, no vomiting, no fever, no chills. Patient was admitted for further evaluation and medical management. Past Medical History CHF, COPD, DM, HTN, Depression Past Surgical History Appendectomy, Cholecystectomy, Hysterectomy, Pacemaker, Tonsillectomy, Defibrillator Family History Reviewed, noncontributory to the management of this case. Past Social History The patient lives at home, denies smoking, alcohol or illicit drugs abuse. Review of Systems Constitutional: Yes: Weakness; No: Fever, Chills, Sweats, Malaise, Other Eyes: No: Pain, Vision change, Conjunctivae inflammation, Eyelid inflammation, Other, Redness ENT: No: Ear pain, Ear discharge, Nose pain, Nose discharge, Nose congestion, Mouth pain, Mouth swelling, Throat pain, Throat swelling, Other Respiratory: No: Cough, Dry, Shortness of breath, SOB with excertion, Wheezing, Hemoptysis, Pleuritic Pain, Sputum, Wheezing, Other Cardiovascular: No: Chest Pain, Palpitations, Orthopnea, Paroxysmal Noc. Dyspnea, Edema, Lt Headedness, Other Gastrointestinal: No: Nausea, Vomiting, Abdominal Pain, Diarrhea, Constipation, Melena, Hematochezia, Other Genitourinary: No Dysuria, No Frequency, No Incontinence, No Hematuria, No Retention, No Other Musculoskeletal: No: other, neck pain, shoulder pain, arm pain, back pain, hand pain, leg pain, foot pain Skin: No: Rash, Lesions, Jaundice, Bruising, Other Neurological: Weakness; No: Numbness, Incoordination, Change in speech, Confusion, Seizures, Other Allergies: Coded Allergies: Sulfa Antibiotics (Verified Allergy, Unknown, 03/17/19) Medications Current Medications Medications Dose Ordered Sig/Satish Route Start Time Stop Time Status Last Admin Dose Admin Albuterol 2.5 mg Q4HPRN PRN NEB 01/29/25 15:45 Aspirin 81 mg DAILY PO 01/30/25 10:00 Atorvastatin Calcium 40 mg HS PO 01/29/25 22:00 Hydralazine HCl 10 mg Q6HP PRN IV 01/29/25 15:45 Ceftriaxone Sodium 50 ml @ 100 mls/hr DAILY@09 IV 01/30/25 09:00 Doxycycline Hyclate 100 ml @ 50 mls/hr Q12H IV 01/29/25 15:45 01/29/25 18:03 50 MLS/HR Diagnostic Test (Pha) 1 strip IQ4HR 01/29/25 16:00 01/29/25 16:17 1 STRIP Insulin Human Regular IQ4HR SC 01/29/25 16:00 Dextrose 50 ml UD PRN IV 01/29/25 15:45 Sodium Chloride 10 ml Q8HR IV 01/29/25 22:00 Acetaminophen/ Hydrocodone Bitart 1 tab Q4HP PRN PO 01/29/25 15:45 Ondansetron HCl 4 mg Q4HP PRN IV 01/29/25 15:45 Docusate Sodium 100 mg BIDPRN PRN PO 01/29/25 15:45 Acetaminophen 650 mg Q6HP PRN PO 01/29/25 15:45 Exam Vital Signs Vital Signs Date Time Temp Pulse Resp B/P (MAP) Pulse Ox O2 Delivery O2 Flow Rate FiO2 01/29/25 18:15 96 Room Air 0.0 01/29/25 18:15 21 01/29/25 16:14 97.4 72 17 144/76 97.4 General Appearance: Alert, Oriented X3, Cooperative, No acute distress HEENT: Atraumatic, PERRLA, EOMI, Mucous membr. moist/pink Respiratory: Clear to auscultation, Normal air movement Cardiovascular: Regular rate, Normal S1, Normal S2, No murmurs Abdominal: Normal bowel sounds, Soft, No tenderness, No hepatospenomegaly, No masses Extremities: No clubbing, No cyanosis, No edema, Normal pulses, No tenderness/swelling Skin: No rashes, No breakdown, No significant lesion Neuro: Normal speech, Normal tone, Sensation intact, Cranial nerves 3-12 NL, Reflexes 2+, Other (Generalized weakness) Psych/Mental Status: Mental status NL, Mood NL Labs/Xrays Labs Test 01/29/25 17:11 01/29/25 14:51 Range/Units POC Glucose 66 L 70-106 mg/dl White Blood Count 12.1 H 4.4-10.8 10^3/uL Red Blood Count 4.73 4.0-5.20 10^6/uL Hemoglobin 13.2 12.2-16.2 g/dL Hematocrit 40.7 36.0-46.0 % Mean Corpuscular Volume 85.9 80.0-100.0 fL Mean Corpuscular Hemoglobin 27.9 L 28.0-32.0 pg Mean Corpuscular Hemoglobin Concent 32.5 32.0-36.0 g/dL Red Cell Distribution Width 17.0 H 11.8-14.3 % Platelet Count 231 140-450 10^3/uL Mean Platelet Volume 10.1 6.9-10.8 fL Neutrophils (%) (Auto) 63.3 37.0-80.0 % Lymphocytes (%) (Auto) 21.3 10.0-50.0 % Monocytes (%) (Auto) 9.9 0.0-12.0 % Eosinophils (%) (Auto) 4.6 0.0-7.0 % Basophils (%) (Auto) 0.9 0.0-2.0 % Neutrophils # (Auto) 7.7 1.6-8.6 10 ^3/uL Lymphocytes # (Auto) 2.6 0.4-5.4 10 ^3/uL Monocytes # (Auto) 1.2 0-1.3 10 ^3/uL Eosinophils # (Auto) 0.6 0-0.8 10 ^3/uL Basophils # (Auto) 0.1 0-0.2 10 ^3/uL Nucleated Red Blood Cells 0.1 % Sodium Level 145 136-145 mmol/L Potassium Level 3.8 3.5-5.1 mmol/L Chloride Level 109 H 98-107 mmol/L Carbon Dioxide Level 26 20-31 mmol/L Anion Gap 10 5-15 Blood Urea Nitrogen 16 9-23 mg/dL Creatinine 0.75 0.550-1.02 mg/dL Glomerular Filtration Rate Calc 79 >90 mL/min BUN/Creatinine Ratio 21.3 H 10.0-20.0 Serum Glucose 42 *L 74-106 mg/dL Calcium Level 10.9 H 8.7-10.4 mg/dL Troponin I High Sensitivity 6 </=34 ng/L PATIENT: OCTAVIO JARA ACCT: [id number] UNIT: [id number] : 1940 LOC: ER ROOM / BED: / AGE / SEX: 84 / F ADM STATUS: REG ER SERVICE 1421 ORDERING PHYSICIAN: VAHID BURROWS MD PROCEDURE(s): CXRP - CHEST PORTABLE REASON: sob ORDER NUMBER(s): [id number], ACCESSION NUMBER(s): [id number] CHEST RADIOGRAPH Indication: sob Technique: Single frontal view of the chest was obtained COMPARISON: XY CHEST PORTABLE on DOS: 12/28/24, XY CHEST PORTABLE on DOS: 12/26/24 FINDINGS: Lines and Tubes: Left chest AICD Lungs: Diffuse increased interstitial prominence Pleura: No effusion. No pneumothorax. Cardiomediastinal contours: Unremarkable Bones: Unremarkable IMPRESSION: Findings fibrotic change with possible superimposed mild pulmonary vascular congestion or viral pneumonia. Assessment/Plan Assessment/Plan Diabetes mellitus with hypoglycemia Leukocytosis, unspecified Generalized weakness Pneumonia, unspecified organism Plan 1. Admit to telemetry units 2. Breathing treatment 3. Pain control management 4. IV antibiotic management 5. Management of fluids and electrolytes 6. Consultation for hospitalist 7. Diagnostic test chest x-ray 8. DVT prophylaxis on aspirin 9. Repeat labs CBC, CMP in a.m. 10. Home medication reviewed and reconciled 11. Continue with current medical management 12. Treatment plan discussed with patient and RN. Patient verbalized understanding. Plan discussed with: Patient, Other (RN) My Orders Orders - RADHA CROOKS DNP Procedure Category Date Status Time Albuterol Medneb PHA 01/29/25 In Process (Ventolin Medneb) 15:45 Aspirin Tablet PHA 01/30/25 In Process 10:00 Atorvastatin (Lipitor) PHA 01/29/25 In Process 22:00 Hydralazine Injection PHA 01/29/25 In Process (Apresoline Inject 15:45 Ceftriaxone 1gm/50ml PHA 01/30/25 In Process D5w (Rocephin) 09:00 Doxycycline PHA 01/29/25 In Process 100mg/100ml 15:45 Consistent DIET 01/29/25 Transmitted Carb(Ccho)Diabetes Dinner Glucose Blood PHA 01/29/25 In Process (Accu-Chek Comfort 16:00 Insulin R (Human) PHA 01/29/25 In Process (Insulin R) 16:00 Dextrose 50% Syringe PHA 01/29/25 In Process 15:45 Allergies JUICE 01/29/25 In Process 15:34 Code Status CODE 01/29/25 Transmitted 15:34 Sodium Chloride Lock PHA 01/29/25 In Process (Saline Lock Ns) 22:00 Oxygen Per Hour RT 01/29/25 Transmitted 15:34 Hydrocodone-Acet PHA 01/29/25 In Process 5/325mg Tab ([place] 15:45 Ondansetron Hcl PHA 01/29/25 In Process (Zofran) 15:45 Docusate Sodium PHA 01/29/25 In Process Capsule (Colace 15:45 Fall Risk Precautions JUICE 01/29/[address] 15:34 Complete Blood Count LAB 01/30/25 Verified 04:00 Comprehensive LAB 01/30/25 Verified Metabolic Panel 04:00 Condition: Serious JUICE 01/29/25 In Process 15:34 Acetaminophen Tablet PHA 01/29/25 In Process (Tylenol Tablet) 15:45 Maintain Bed Rest JUICE 01/29/25 In Process 15:34 Sequential JUICE 01/29/25 In Process Compression Device Admit ADMIT 01/29/25 Transmitted 18:23 Nitroglycerin PHA 01/29/25 Transmitted Sublingual (Ntrostat 18:30 Morphine Sulfate PHA 01/29/25 Transmitted Injection 18:30 Stat Ekg For Chest JUICE 01/29/25 Transmitted Pain 18:23 Notify Of Changes JUICE 01/29/25 Transmitted From Base 18:23 [employer] Middleware Developer For JUICE 01/29/25 Transmitted 24 Hours 18:23 Emergency Dysrhythmia JUICE 01/29/25 Transmitted Protocol 18:23 Rhythm Strips Once JUICE 01/29/25 Transmitted Every Shift 18:23 Oxygen By Nasal RT 01/29/25 Transmitted Cannula 18:23 Problem List: (1) Diabetes mellitus with hypoglycemia (2) Leukocytosis, unspecified (3) Generalized weakness (4) Pneumonia, unspecified organism Date of Service: Jan 29, 2025 Billing Provider: RADHA CROOKS DNP Common Visit Codes: [id number] INP/OBS CARE (HIGH) RADHA CROOKS DNP Jan 29, 2025 18:26
[2025-01-29] MEDS ORDERED: NITROGLYCERIN 0.4 MG SL TAB SL PRN (18:30)
[2025-01-29] MEDS ORDERED: MORPHINE SULFATE INJ 2 MG/ml SYRG IV PRN (18:30)
[2025-01-29] MEDS: ACETAMINOPHEN 325 MG TAB PO PRN (18:45)
[2025-01-29 19:35] VITALS: PULSE 72; RESP 12; O2SAT 98
[2025-01-30] VITALS (12 sets, daily range): BP systolic 121–167; BP diastolic 71–91; PULSE 66–87; RESP 16–95; TEMP 97.3–98.8; O2SAT 93–100
[2025-01-30] MEDS: SODIUM CHLOR 0.9% PF (SALINE LOCK) 10ML VIAL/SYR IV SCH (00:21)
[2025-01-30] MEDS: ATORVASTATIN 20 MG TAB PO SCH (00:35)
[2025-01-30] MEDS: D5W/SOD CHL 0.45% 1,000 ML IV SCH (00:37)
[2025-01-30] MEDS: cefTRIAXone 1GM/50ML D5W 50 ML IV SCH (09:03)
[2025-01-30 09:59] LABS: Hematocrit 43.5 % (36.0-46.0); Hemoglobin 14.3 g/dL (12.2-16.2); Mean Corpuscular Hemoglobin 28.5 pg (28.0-32.0); Mean Corpuscular Volume 86.9 fL (80.0-100.0); Nucleated Red Blood Cells % 0.1 %
[2025-01-30 10:02] LABS: Alanine Aminotransferase 23 U/L (7-40); Albumin 4.3 g/dL (3.2-4.8); Alkaline Phosphatase 74 U/L (46-116); Anion Gap 11 (5-15); BUN/Creatinine Ratio 13.4 (10.0-20.0); Carbon Dioxide 21 mmol/L (20-31); Potassium 4.0 mmol/L (3.5-5.1); Sodium 140 mmol/L (136-145); Total Protein 7.6 g/dL (5.7-8.2)
[2025-01-30 10:03] LABS: Bilirubin, Total 0.6 mg/dL (0.2-1.0)
[2025-01-30 10:04] LABS: Chloride 108 mmol/L (98-107); Glucose 187 mg/dL (74-106)
[2025-01-30 10:05] LABS: Blood Urea Nitrogen 9 mg/dL (9-23); Calcium 10.6 mg/dL (8.7-10.4)
[2025-01-30] MEDS: hydrALAZINE HCL 20 MG/ML VL IV PRN (11:30)
--- NOTE | 2025-01-30 12:06 | DVHPN2 ---
Progress Note Date Seen: Jan 30, 2025 Medical Necessity Reason Pt with a Central, PICC or Fol: No Subjective Patient reports: No new complaints Review of Systems: HEENT:Normal, CVS:Normal, RESPIRATORY:Normal, GI:Normal, :Normal, MSK:Normal, NEURO:Normal Objective vital signs Vital Sign Date Time Temp Pulse Resp B/P (MAP) Pulse Ox O2 Delivery O2 Flow Rate FiO2 01/30/25 11:30 162/89 01/30/25 09:00 98.2 71 17 94 98.2 01/30/25 07:35 Room Air 0.0 01/30/25 07:35 21 Total Intake and Output 01/29/25 01/29/25 01/30/25 15:00 23:00 07:00 Intake Total 1225 ml 300 ml Balance 1225 ml 300 ml medications Current Medications Medications Dose Ordered Sig/Satish Route Start Time Stop Time Status Last Admin Dose Admin Albuterol 2.5 mg Q4HPRN PRN NEB 01/29/25 15:45 Aspirin 81 mg DAILY PO 01/30/25 10:00 01/30/25 09:03 81 MG Atorvastatin Calcium 40 mg HS PO 01/29/25 22:00 01/30/25 00:35 40 MG Hydralazine HCl 10 mg Q6HP PRN IV 01/29/25 15:45 01/30/25 11:30 10 MG Ceftriaxone Sodium 50 ml @ 100 mls/hr DAILY@09 IV 01/30/25 09:00 01/30/25 09:03 100 MLS/HR Doxycycline Hyclate 100 ml @ 50 mls/hr Q12H IV 01/29/25 15:45 01/30/25 06:20 50 MLS/HR Diagnostic Test (Pha) 1 strip IQ4HR 01/29/25 16:00 01/30/25 11:29 1 STRIP Insulin Human Regular IQ4HR SC 01/29/25 16:00 01/30/25 11:43 6 UNITS Dextrose 50 ml UD PRN IV 01/29/25 15:45 Sodium Chloride 10 ml Q8HR IV 01/29/25 22:00 01/30/25 06:30 10 ML Acetaminophen/ Hydrocodone Bitart 1 tab Q4HP PRN PO 01/29/25 15:45 Ondansetron HCl 4 mg Q4HP PRN IV 01/29/25 15:45 Docusate Sodium 100 mg BIDPRN PRN PO 01/29/25 15:45 Acetaminophen 650 mg Q6HP PRN PO 01/29/25 15:45 01/29/25 18:45 650 MG Nitroglycerin 0.4 mg Q5MINP PRN SL 01/29/25 18:30 Morphine Sulfate 2 mg Q30M PRN IV 01/29/25 18:30 Dextrose/Sodium Chloride 1,000 ml @ 75 mls/hr [id number] IV 01/29/25 20:45 01/30/25 09:03 75 MLS/HR Examination: GENERAL:Normal, HEENT:Normal, NECK:Normal, LUNGS:Normal, CVS:Normal, ABDOMEN:Normal, MSK:Normal, SKIN:Normal, NEURO:Normal, NEURO:Abnormal (confused), :Normal laboratory and microbiology Laboratory Tests 01/30/25 09:15 Test 01/30/25 09:15 Range/Units Serum Glucose 187 H 74-106 mg/dL Problem List/Assessment/Plan Problem List/Assessment/Plan #1 encephalopathy ?metabolic #2 seizure: neuro eval #3 hypoglycemia: monitor #4 dm #5 htn #6 copd #7 s/p pacer #8 ?dementia #9 chronic systolic/diastolic heart failure #10 sepsis ?uti: luica, culture unstable for transfer advance care planning- full code- time spent 19 mins Plan discussed with: Patient, Daughter My Orders My Orders Orders - MICHAEL ISABEL MD Procedure Category Date Status Time Insert/Manage Urinary JUICE 01/30/25 Transmitted Catheter 11:58 Urine Bacterial VIOLETA 01/30/25 Transmitted Culture 11:58 * Neurology Consult CONS 01/30/25 Transmitted 11:[address] 01/30/25 Transmitted 11:58 Basic Metabolic Panel LAB 01/31/25 Verified 06:00 Complete Blood Count LAB 01/31/25 Verified 06:00 Chest Portable XY 01/31/25 Transmitted 06:00 Date of Service: Jan 30, 2025 Billing Provider: MICHAEL ISABEL MD Common Visit Codes: [id number] INP/OBS CARE(HIGH) Secondary Visit Codes: [id number] CARE PLAN 30 MINUTES MICHAEL ISABEL MD Jan 30, 2025 12:06
[2025-01-30 13:33] LABS: Urine Protein, UAD Negative (Negative)
--- NOTE | 2025-01-30 13:34 | DVH ---
EXAM: CT HEAD WITHOUT CONTRAST INDICATION: seizure TECHNIQUE: CT of the head without intravenous contrast. Coronal and sagittal reformatted images are s ubmitted. Radiation Dose : 1. Head: CT Dose: CTDI volume is 53.21 mGy. Dose-length product is 960.99 mGy*cm The dose indicators for CT are the volume Computed Tomography (CT) Dose Index (CTDIvol) and the Dose Length Product (DLP), and are measured in units of mGy and mGy-cm, respectively. These indicators are not patient dose, but values generated from the CT scanner acquisition factors. The report includes radiation exposure data for exposures received during this examination. All CT scans at this medical facility are performed using dose modulation techniques as appropriate to a performed exam including the following: Automated exposure control was utilized; adjustment of the MA and/or KV according to patient size; and use of iterative reconstruction technique. COMPARISON: CT HEAD WITHOUT CONTRAST on DOS: 12/26/24 FINDINGS: There is no evidence of acute intracranial hemorrhage, extra-axial collection, mass effect, midline s hift, herniation or hydrocephalus. There are periventricular and subcortical hypodensities, nonspecific, but likely reflecting sequelae of chronic microvascular ischemic changes. The ventricles, sulci and cisterns are age appropriate. The borrego-white differentiation is intact. The visualized paranasal sinuses and mastoid air cells are clear. No depressed calvarial fracture. The surrounding soft tissues are unremarkable. IMPRESSION: 1. No acute intracranial abnormality.
[2025-01-30] MEDS: LOSARTAN POTASSIUM 25 MG TAB PO ONE (14:37)
--- NOTE | 2025-01-30 16:02 | DVHINCON2 ---
Date of service: Jan 30, [address] Drake Reason for Consultation Seizure History of Present Illness Ms. Gerardo is a 84 years old right-handed female with a history of hypertension, diabetes, congestive heart failure, COPD, dementia, she was brought to the [facility] on 01/29/2025 with a chief company of hypoglycemia, at this time, she is awake, but is only oriented to person, the history is obtained from her On 01/29/2025, the patient has had her breakfast around 9:00 a.m., around 1:00 p.m., when her checked out, the patient was noticed to be mentally altered or diminished responsiveness to her surroundings, her sugar level was to be 32, and soon after she was given orange juice, she had one event where she was shaking all over body, eyes open, yelling as if she was in pain, the convulsion stopped in 20 seconds, after the patient has had 5-6 more similar events. When the EMS came over, her sugar level was 102. She has never had similar problem or seizure disorder. She has no history of traumatic brain injury, intracranial infection, or stroke For 4-5 years, she has had progressive memory problem with short-term memory more affected, she remember all her family members, and their names, she may not be able to fine way home in her neighborhood, she has not had specific evaluating for her memory problem yet, I do not see dementia product in her home medication list Her progress intermittent tremor in both upper extremity with a left-sided more affected for about 2-3 years, the tremors mostly when she is eating, or doing things with her hands, and she has to use a straw to drink liquid. She saw a neurologist who said the patient did not have Parkinson's disease and dementia, in the tremor was not neurologic, she is not on tremor treatment. There is no family history of tremors. Per my observation, the patient has normal voice, facial expression and blinking. She reported burning on urination Urinalysis, 01/30/2025: Unremarkable WBC/HB/PLT/CV, 01/30/2025: 12.9/14.3/180/86.9 CMP, 01/30/2025: Unremarkable Glucose, 01/29/2025: 49, 132, 111, 91, 66, 79, 164, 01/30/2025: 265 HGB A1c, 12/26/2024: 7 CT head, 01/30/2025: No acute intracranial abnormality. Past Medical History Hypertension, diabetes, congestive heart failure, COPD Past Surgical History Appendectomy, cholecystectomy hysterectomy, pacemaker insertion, tonsillectomy Family History: Hypertension G8 MOTHER Family History Hypertension. No seizure, no tremors Social History Smoker: Non-Smoker Alcohol: Denies ETOH Use Drugs: Denies Drug Use Lives In: Home Allergies: Coded Allergies: Sulfa Antibiotics (Verified Allergy, Unknown, 03/17/19) Home Meds Reported Medications Albuterol Sulfate (Albuterol Sulfate) 2 Mg Tab, 108 MCG PO Q6HP, MG 12/27/24 Aspirin (Aspirin) 325 Mg Tab, 81 MG PO DAILY for 30 Days, MG 12/27/24 Insulin Regular (Human) (Humulin R) 100 Unit/Ml Inj, 18 UNIT IV, INJ 12/27/24 Estradiol (Estradiol) 1 Mg Tab, 0.1 MG PO DAILY, MG 12/27/24 Triamcinolone Acetonide (Triamcinolone Acetonide) 0.1 % Pst, 1 APPLIC TOP, APPLIC 12/27/24 Ketoconazole (Ketoconazole) 2 % Cre, 1 APPLIC TOP DAILY, #15 GRAMS 12/27/24 Metformin Hydrochloride (Metformin Hcl) 500 Mg Tab, 500 MG PO IBID for 30 Days, MG 12/27/24 Insulin NPH (Human) (Isophane) (Humulin N) 100 Unit/Ml Inj, 20 UNIT SC, INJ 12/27/24 Insulin NPH (Human) (Isophane) (Humulin N) 100 Unit/Ml Inj, 18 UNIT SC, INJ 12/27/24 Losartan Potassium (Losartan Potassium) 25 Mg Tab, 1 TAB PO DAILY for 100 Days, #100 12/27/24 Atorvastatin Calcium (ATORVASTATIN CALCIUM) 40 Mg Tab, 1 TAB PO DAILY for 100 Days, #100 12/27/24 Allopurinol (Allopurinol) 100 Mg Tab, 1 TAB PO DAILY for 100 Days, #100 12/27/24 Sertraline Hcl (Sertraline Hcl) 25 Mg Tab, 1 TAB PO DAILY for 30 Days, #30 12/27/24 Current Medications Current Medications Medications (Trade) Dose Ordered Sig/Satish Route PRN Reason Start Time Stop Time Status Last Admin Aspirin 81 mg DAILY PO 01/30/25 10:00 01/30/25 09:03 Atorvastatin Calcium (Lipitor) 40 mg HS PO 01/29/25 22:00 01/30/25 00:35 Ceftriaxone Sodium 50 ml @ 100 mls/hr DAILY@09 IV 01/30/25 09:00 01/30/25 09:03 Diagnostic Test (Pha) (Accu-Chek Comfort Curve T) 1 strip IQ4HR 01/29/25 16:00 01/30/25 15:47 Insulin Human Regular (InsuLIN R) IQ4HR SC 01/29/25 16:00 01/30/25 11:43 Sodium Chloride (Saline Lock Ns) 10 ml Q8HR IV 01/29/25 22:00 01/30/25 14:29 Nitroglycerin (Ntrostat Sublingual) 0.4 mg Q5MINP PRN SL FOR CHEST PAIN 01/29/25 18:30 Morphine Sulfate 2 mg Q30M PRN IV FOR CHEST PAIN 01/29/25 18:30 Dextrose/Sodium Chloride 1,000 ml @ 75 mls/hr [id number] IV 01/29/25 20:45 01/30/25 12:02 DC 01/30/25 09:03 Losartan Potassium (Cozaar Tablet) 25 mg DAILY PO 01/31/25 10:00 Review of Systems As above, the other systems are negative Vital Signs Vital Signs Date Time Temp Pulse Resp B/P (MAP) Pulse Ox O2 Delivery O2 Flow Rate FiO2 01/30/25 14:37 121/90 01/30/25 13:00 98.8 71 18 93 98.8 01/30/25 07:35 Room Air 0.0 01/30/25 07:35 21 Physical Exam GENERAL EXAM: General: the patient is well developed and nourished. No acute distress. HEENT: Normocephalic, neck is supple, no carotid bruits. No mass. RESPIRATORY: Normal respiratory effort with symmetrical lung expansion. Lungs clear to auscultation. CARDIOVASCULAR: Regular rate and rhythm with no murmurs. S1, S2. ABDOMEN: Soft, nontender, normal bowel sound NEUROLOGICAL: MENTAL STATUS: Awake and alert. Oriented to person, good social skills SPEECH, LANGUAGE, HIGHER CORTICAL FUNCTION: no aphasia or dysathria. CRANIAL NERVES: #2: Intact visual deluca to confrontation. The optic discs were sharp. #3,4,6: Pupils are equal, round and reactive. EOMs full and conjugate. #5: Facial sensation intact in all three divisions bilaterally. Mandibular strength intact. #7: Facial muscles symmetrical and strength intact. #8: Hearing grossly normal to voice. #9,10: Uvula and soft palate rise in the midline. Swallow and voice are normal. #11: Trapezius and sternomastoid strength intact bilaterally. #12: Tongue midline. No fasciculations or atrophy. SENSATION: Sensation to touch and pinprick is normal. MOTOR: Normal tone in the upper and lower extremity. Normal muscle bulk. No fasciculations. Tremors in both upper extremities, especially on posturing, with a left-sided more affected. Muscle strength of the major groups in the upper extremities is 5/5. Muscle strength of the major groups in the lower extremities is 5/5. REFLEXES: Deep tendon reflexes are symmetrical. No pathological reflexes. CEREBELLAR/COORDINATION: Finger to nose is normal bilaterally. GAIT/STATION: deferred. Labs/Diagnostic Data Labs Test 01/30/25 12:50 01/30/25 11:25 01/30/25 09:15 01/29/25 14:51 Range/Units Urine Color Light-yellow Yellow Urine Clarity Clear Clear Urine pH 7.0 5.0-9.0 Urine Specific [place] 1.009 1.001-1.035 Urine Protein Negative Negative Urine Ketones Negative Negative Urine Blood Negative Negative /uL Urine Nitrite Negative Negative Urine Bilirubin Negative Negative Urine Urobilinogen Normal Negative mg/dL Urine Leukocyte Esterase Negative Negative /uL Urine RBC <1 0 - 4 /hpf Urine Microscopic WBC 2 0-5 /HPF Urine Squamous Epithelial Cells None seen <5 /hpf Urine Bacteria None seen None Seen /hpf Urine Glucose 3+ H Normal mg/dL POC Glucose 265 H 70-106 mg/dl White Blood Count 12.9 H 4.4-10.8 10^3/uL Red Blood Count 5.01 4.0-5.20 10^6/uL Hemoglobin 14.3 12.2-16.2 g/dL Hematocrit 43.5 36.0-46.0 % Mean Corpuscular Volume 86.9 80.0-100.0 fL Mean Corpuscular Hemoglobin 28.5 28.0-32.0 pg Mean Corpuscular Hemoglobin Concent 32.8 32.0-36.0 g/dL Red Cell Distribution Width 17.1 H 11.8-14.3 % Platelet Count 180 140-450 10^3/uL Mean Platelet Volume 10.2 6.9-10.8 fL Neutrophils (%) (Auto) 70.1 37.0-80.0 % Lymphocytes (%) (Auto) 13.6 10.0-50.0 % Monocytes (%) (Auto) 10.0 0.0-12.0 % Eosinophils (%) (Auto) 5.4 0.0-7.0 % Basophils (%) (Auto) 0.9 0.0-2.0 % Neutrophils # (Auto) 9.1 H 1.6-8.6 10 ^3/uL Lymphocytes # (Auto) 1.8 0.4-5.4 10 ^3/uL Monocytes # (Auto) 1.3 0-1.3 10 ^3/uL Eosinophils # (Auto) 0.7 0-0.8 10 ^3/uL Basophils # (Auto) 0.1 0-0.2 10 ^3/uL Nucleated Red Blood Cells 0.1 % Sodium Level 140 # 136-145 mmol/L Potassium Level 4.0 3.5-5.1 mmol/L Chloride Level 108 H 98-107 mmol/L Carbon Dioxide Level 21 20-31 mmol/L Anion Gap 11 5-15 Blood Urea Nitrogen 9 9-23 mg/dL Creatinine 0.67 0.550-1.02 mg/dL Glomerular Filtration Rate Calc 87 >90 mL/min BUN/Creatinine Ratio 13.4 10.0-20.0 Serum Glucose 187 H 74-106 mg/dL Calcium Level 10.6 H 8.7-10.4 mg/dL Total Bilirubin 0.6 0.2-1.0 mg/dL Aspartate Amino Transferase (AST) 35 13-40 U/L Alanine Aminotransferase (ALT) 23 7-40 U/L Alkaline Phosphatase 74 46-116 U/L Total Protein 7.6 5.7-8.2 g/dL Albumin 4.3 3.2-4.8 g/dL Troponin I High Sensitivity 6 </=34 ng/L Microbiology Date/Time Source Procedure Growth Status 01/30/25 02:09 Nose MRSA Screen - Final Complete Assessment Status epileptics, grand mal seizure secondary to hypoglycemia Epileptic seizure, less likely Cognitive dysfunction, the patient has dementia, possibly Alzheimer's disease Tremors, she likely has essential tremors, not Parkinson's disease, which affect her daily life Dysuria, ? Urinary tract infection Plan/Recommendation Monitoring Supportive treatment Telemetry Vitamin B12, folic acid, TSH, FT4 EEG MRI brain scan IV antibiotics Ativan for seizure breakthrough Preventive seizure treatment is not indicated A trial of Mysoline 25 mg daily for essential tremors DVT prophylaxis GI prophylaxis Further address her dementia with her [facility] This is a long and complicated consultation Prognosis: Poor This medical document was created using an electronic medical record system with Pikum dictation system. Although this document has been carefully reviewed, there may still be some phonetic and typographical errors. These areas are purely typographical due to imperfections of the software programs, and do not reflect any compromise in the patient's medical care. Plan discussed with: Spouse, Other EVA BEST MD Jan 30, 2025 16:02
[2025-01-30] MEDS ORDERED: LORazepam 2MG/ML-1ML VIAL IV PRN ×2 (17:00)
[2025-01-31] VITALS (10 sets, daily range): BP systolic 102–145; BP diastolic 52–82; PULSE 68–87; RESP 17–20; TEMP 97.4–98.5; O2SAT 93–97
--- NOTE | 2025-01-31 06:38 | DVH ---
CHEST RADIOGRAPH Indication: copd Technique: Single frontal view of the chest was obtained COMPARISON: XY CHEST PORTABLE on DOS: 01/29/25, XY CHEST PORTABLE on DOS: 12/28/24, XY CHEST PORTABLE o n DOS: 12/26/24 FINDINGS: Lines and Tubes: None Lungs: Stable chronic appearing bilateral interstitial pulmonary markings without evidence of focal c onsolidation. Pleura: No effusion. No pneumothorax. Cardiomediastinal contours: Unremarkable Bones: Unremarkable IMPRESSION: 1. Stable chronic appearing bilateral interstitial pulmonary markings. No evidence of consolidation.
[2025-01-31 06:46] LABS: Hematocrit 43.9 % (36.0-46.0); Hemoglobin 14.3 g/dL (12.2-16.2); Mean Corpuscular Hemoglobin 28.0 pg (28.0-32.0); Mean Corpuscular Volume 85.7 fL (80.0-100.0); Nucleated Red Blood Cells % 0.1 %
[2025-01-31 06:53] LABS: Anion Gap 14 (5-15); Carbon Dioxide 22 mmol/L (20-31); Chloride 105 mmol/L (98-107); Potassium 4.1 mmol/L (3.5-5.1); Sodium 141 mmol/L (136-145)
[2025-01-31 06:54] LABS: Calcium 10.3 mg/dL (8.7-10.4)
[2025-01-31 06:59] LABS: BUN/Creatinine Ratio 16.9 (10.0-20.0); Blood Urea Nitrogen 13 mg/dL (9-23)
[2025-01-31 07:04] LABS: Glucose 228 mg/dL (74-106)
[2025-01-31] MEDS: LOSARTAN POTASSIUM 25 MG TAB PO SCH (09:54)
--- NOTE | 2025-01-31 11:54 | DVHDS2 ---
Discharge Summary Date of Admission Jan 29, 2025 at 18:47 Date of Discharge: Jan 31, 2025 Labs/Diagnostic Data: Laboratory Results Test 01/31/25 07:51 01/31/25 05:55 01/30/25 12:50 01/30/25 09:15 POC Glucose 214 mg/dl (70-106) White Blood Count 13.5 10^3/uL (4.4-10.8) Red Blood Count 5.12 10^6/uL (4.0-5.20) Hemoglobin 14.3 g/dL (12.2-16.2) Hematocrit 43.9 % (36.0-46.0) Mean Corpuscular Volume 85.7 fL (80.0-100.0) Mean Corpuscular Hemoglobin 28.0 pg (28.0-32.0) Mean Corpuscular Hemoglobin Concent 32.7 g/dL (32.0-36.0) Red Cell Distribution Width 16.7 % (11.8-14.3) Platelet Count 212 10^3/uL (140-450) Mean Platelet Volume 11.0 fL (6.9-10.8) Neutrophils (%) (Auto) 69.1 % (37.0-80.0) Lymphocytes (%) (Auto) 14.3 % (10.0-50.0) Monocytes (%) (Auto) 11.7 % (0.0-12.0) Eosinophils (%) (Auto) 4.0 % (0.0-7.0) Basophils (%) (Auto) 0.9 % (0.0-2.0) Neutrophils # (Auto) 9.3 10 ^3/uL (1.6-8.6) Lymphocytes # (Auto) 1.9 10 ^3/uL (0.4-5.4) Monocytes # (Auto) 1.6 10 ^3/uL (0-1.3) Eosinophils # (Auto) 0.5 10 ^3/uL (0-0.8) Basophils # (Auto) 0.1 10 ^3/uL (0-0.2) Nucleated Red Blood Cells 0.1 % Sodium Level 141 mmol/L (136-145) Potassium Level 4.1 mmol/L (3.5-5.1) Chloride Level 105 mmol/L (98-107) Carbon Dioxide Level 22 mmol/L (20-31) Anion Gap 14 (5-15) Blood Urea Nitrogen 13 mg/dL (9-23) Creatinine 0.77 mg/dL (0.550-1.02) Glomerular Filtration Rate Calc 76 mL/min (>90) BUN/Creatinine Ratio 16.9 (10.0-20.0) Serum Glucose 228 mg/dL (74-106) Calcium Level 10.3 mg/dL (8.7-10.4) Vitamin B12 Level 3028 pg/mL (211-911) Thyroid Stimulating Hormone (TSH) 3.29 uIU/mL (0.55-4.78) Urine Color Light-yellow (Yellow) Urine Clarity Clear (Clear) Urine pH 7.0 (5.0-9.0) Urine Specific [place] 1.009 (1.001-1.035) Urine Protein Negative (Negative) Urine Ketones Negative (Negative) Urine Blood Negative /uL (Negative) Urine Nitrite Negative (Negative) Urine Bilirubin Negative (Negative) Urine Urobilinogen Normal mg/dL (Negative) Urine Leukocyte Esterase Negative /uL (Negative) Urine RBC <1 /hpf (0 - 4) Urine Microscopic WBC 2 /HPF (0-5) Urine Squamous Epithelial Cells None seen /hpf (<5) Urine Bacteria None seen /hpf (None Seen) Urine Glucose 3+ mg/dL (Normal) Total Bilirubin 0.6 mg/dL (0.2-1.0) Aspartate Amino Transferase (AST) 35 U/L (13-40) Alanine Aminotransferase (ALT) 23 U/L (7-40) Alkaline Phosphatase 74 U/L (46-116) Total Protein 7.6 g/dL (5.7-8.2) Albumin 4.3 g/dL (3.2-4.8) Test 01/29/25 14:51 Troponin I High Sensitivity 6 ng/L (</=34) Other Laboratory Tests 01/31/25 05:55 Brief Hx & Hospital Course: see dictated note Condition at Discharge: Fair Final Diagnosis/Problems List seizure Discharge Disposition: Acute Care Facility Discharge Instruct/Medications Diet: Consistent carbohydrate, Cardiac 2g Na,low cholest Activity: No Restrictions, As Tolerated Follow Up/Referral: fu with [facility] Medications: per mar Scheduled Albuterol Sulfate (Albuterol Sulfate), 108 MCG PO Q6HP, (Reported) Allopurinol (Allopurinol), 1 TAB PO DAILY, (Reported) Aspirin (Aspirin), 81 MG PO DAILY, (Reported) Atorvastatin Calcium (Atorvastatin Calcium), 1 TAB PO DAILY, (Reported) Estradiol (Estradiol), 0.1 MG PO DAILY, (Reported) Ketoconazole (Ketoconazole), 1 APPLIC TOP DAILY, (Reported) Losartan Potassium (Losartan Potassium), 1 TAB PO DAILY, (Reported) Metformin Hydrochloride (Metformin Hcl), 500 MG PO IBID, (Reported) Sertraline Hcl (Sertraline Hcl), 1 TAB PO DAILY, (Reported) Miscellaneous Medications Insulin NPH (Human) (Isophane) (Humulin N), 18 UNIT SC, (Reported) Insulin NPH (Human) (Isophane) (Humulin N), 20 UNIT SC, (Reported) Insulin Regular (Human) (Humulin R), 18 UNIT IV, (Reported) Triamcinolone Acetonide (Triamcinolone Acetonide), 1 APPLIC TOP, (Reported) Discharge Statement: "Patient was advised to return to the ER or call 911 if any headaches, dizziness, shortness of breath, chest pain, abdominal pain, bleeding, fevers, or worsening of medical condition. Patient was counseled about treatment plan, medications, possible side effects, patientverbalized understanding. All questions were answered to the best of my ability. This discharge took greater then 30 minutes in planning, reviewing documentation, counseling the patient, and discussing with other team members." ASSESSMENT ASSESSMENT Assessment seizure Date of Service: Jan 31, 2025 Billing Provider: MICHAEL ISABEL MD Common Visit Codes: 94729-GKO/OBS DISCH DAY >30min MICHAEL ISABEL MD Jan 31, 2025 11:54
--- NOTE | 2025-01-31 12:20 | DVHDS ---
HISTORY OF PRESENT ILLNESS: The patient is an 84-year-old lady who is admitted with a history of seizure, generalized weakness, and low blood sugar. The patient has had increasing confusion. She has history of COPD, CHF, diabetes, dementia, depression, and hypertension. She also has a defibrillator. HOSPITAL COURSE: The patient had a chest x-ray that showed fibrotic changes with pulmonary venous congestion. The patient had a head CT that showed no acute intracranial abnormality. The patient's urine culture so far has been negative. The patient has been confused while in the hospital. Her TSH was within normal limits. The patient's white count is elevated at 13,000. She will now be transferred to [place] for further management. FINAL DIAGNOSES: * Encephalopathy, likely metabolic. * Likely dementia. * Seizure. * Hypoglycemia. * Diabetes mellitus. * Hypertension. * COPD/pulmonary fibrosis. * History of defibrillator. * Chronic systolic/diastolic heart failure. * Sepsis with likely pneumonia. Time spent in discharge planning including paper work and review of plan with nursing was 39 minutes. MD THEO Elizondo/CORNELL TID: [id number] RECEIPT: [id number]
[2025-01-31] MEDS: AZITHROMYCIN 500MG/ 250ML 250 ML IV ONE (13:46)
[2025-01-31] MEDS: HYDROcodone-ACET 5/325MG TAB PO PRN (14:47)
[2025-02-01] MEDS ORDERED: AZITHROMYCIN 500MG/ 250ML 250 ML IV SCH (10:00)
== END 2025-01-31 21:11 | disposition short-term general hospital (02) | DRG 871 ==
LOC: ER 13:59 → EDBD 13:59 → TELE-WESTW 18:24 → OVERFLOW 18:47 → TELE-WESTW 23:05
PROVIDERS: ADMIT Internal Medicine; ATTEND Internal Medicine
DX: A41.9 Sepsis, unspecified organism (principal); G93.41 Metabolic encephalopathy; J69.0 Pneumonitis due to inhalation of food and vomit; J18.9 Pneumonia, unspecified organism; I50.42 Chronic combined systolic (congestive) and diastolic (congestive) heart failure; J44.0 Chronic obstructive pulmonary disease with (acute) lower respiratory infection; G40.409 Other generalized epilepsy and epileptic syndromes, not intractable, without status epilepticus; I11.0 Hypertensive heart disease with heart failure; J84.10 Pulmonary fibrosis, unspecified; E11.649 Type 2 diabetes mellitus with hypoglycemia without coma; F03.90 Unspecified dementia, unspecified severity, without behavioral disturbance, psychotic disturbance, mood disturbance, and anxiety; G25.0 Essential tremor; Z88.2 Allergy status to sulfonamides; Z95.810 Presence of automatic (implantable) cardiac defibrillator; Z90.710 Acquired absence of both cervix and uterus; Z82.49 Family history of ischemic heart disease and other diseases of the circulatory system; Z90.49 Acquired absence of other specified parts of digestive tract
CPT/HCPCS: 36415; 70450; 71045; 80048; 80053; 81001; 82607; 82962; 84443; 84484; 85025; 87081; 87086; 93005; 96361; 96365; G0378; J1815